=== PATIENT | female | born 1970 | race Caucasian/White ===

== ENCOUNTER 2019-06-13 02:03 | Observation (INO) | payer BC ==
--- NOTE | 2019-06-13 02:54 | ER ---
Nurse's Notes [facility] Name: Mary Leiva Age: 48 yrs Sex: Female : 1970 Arrival Date: 06/13/2019 Time: 02:07 Bed 8 Private MD: Diagnosis: Dysphagia;Esophageal obstruction;Essential (primary) hypertension;Hypokalemia Presentation: 06/13 02:17 Presenting complaint: Patient states: I was eating at 2000 last night and it felt like jb4 something got caught in my throat and now I cannot swallow anything without throwing it back up. Transition of care: patient was not received from another setting of care. Onset of symptoms was June 12, 2019. Risk Assessment: Do you want to hurt yourself or someone else? Patient reports no desire to harm self or others. Initial Sepsis Screen: Does the patient meet any 2 criteria? HR > 90 bpm. Yes Does the patient have a suspected source of infection? No. Patient's initial sepsis screen is negative. Care prior to arrival: None. 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 - Social history:: Smoking status: Patient uses tobacco products, smokes one-half pack cigarettes per day, Patient/guardian denies using alcohol, street drugs. - Ebola Screening: : No symptoms or risks identified at this time. - Family history:: not pertinent. Screenin:20 Abuse screen: Denies threats or abuse. Nutritional screening: No deficits noted. jb4 Tuberculosis screening: No symptoms or risk factors identified. Fall Risk None identified. Assessment: 02:20 General: Appears in no apparent distress. uncomfortable, Behavior is calm, cooperative, jb4 appropriate for age. Pain: Denies pain. Neuro: Level of Consciousness is awake, alert, obeys commands, Oriented to time, situation. Cardiovascular: Patient's skin is warm and dry. Respiratory: Airway is patent Respiratory effort is even, unlabored, Respiratory pattern is regular, symmetrical. GI: No deficits noted. No signs and/or symptoms were reported involving the gastrointestinal system. : No deficits noted. No signs and/or symptoms were reported regarding the genitourinary system. EENT: Throat is clear with gag reflex present, Reports inability to swallow.. Derm: Skin is intact, Skin is pink, warm \T\ dry. Musculoskeletal: Circulation, motion, and sensation intact. Range of motion:. 03:30 Reassessment: Patient appears in no apparent distress at this time. No changes from jb4 previously documented assessment. Patient and/or family updated on plan of care and expected duration. Pain level reassessed. 04:13 Reassessment: Patient appears in no apparent distress at this time. Patient and/or jb4 family updated on plan of care and expected duration. Pain level reassessed. Patient is alert, oriented x 3, equal unlabored respirations, skin warm/dry/pink. Patient states feeling better. 05:59 Reassessment: Pt resting quietly, A\T\O x 4, resp unlabored, IV site patent, intact with bb fluids infusing, report called to Nataly CISNEROS for room 408. Vital Signs: 02:19 BP 168 / 114; Pulse 110; Resp 18; Temp 98.2(O); Pulse Ox 100% on R/A; Weight 55.34 kg jb4 (R); Height 5 ft. 2 in. (157.48 cm); Pain 0/10; 03:19 BP 171 / 119; Pulse 97; Resp 18; Pulse Ox 97% on R/A; jb4 04:00 BP 155 / 109; Pulse 84; Resp 16; Pulse Ox 99% on R/A; jb4 05:00 BP 154 / 93; Pulse 81; Resp 16; Pulse Ox 97% on R/A; jb4 06:00 BP 164 / 104; Pulse 83; Resp 18 S; Temp 97.8(O); Pulse Ox 98% on R/A; jb4 02:19 Body Mass Index 22.31 (55.34 kg, 157.48 cm) jb4 ED Course: 02:07 Patient arrived in ED. cl3 02:10 Marcus Haji, RN is Primary Nurse. jb4 02:18 Triage completed. jb4 02:19 Eduar Vasquez MD is Attending Physician. fausto 02:19 Arm band placed on right wrist. jb4 02:20 Patient has correct armband on for positive identification. Bed in low position. Call jb4 light in reach. Side rails up X 1. Pulse ox on. NIBP on. 02:51 Manuel Culp MD is Hospitalizing Provider. fausto 03:05 Inserted saline lock: 22 gauge in right antecubital area, using aseptic technique. lp1 Blood collected. 03:21 X-ray completed. Portable x-ray completed in exam room. Patient tolerated procedure mh1 well. 03:22 XRAY Chest (1 view) In Process Unspecified. EDMS 06:02 No provider procedures requiring assistance completed. Patient admitted, IV remains in bb place. Administered Medications: Discontinued: NS 0.9% 1000 ml IV at 125 ml/hr continuous 02:49 CANCELLED (Duplicate Order): NS 0.45 % 1000 ml IV at 125 ml/hr continuous fausto 03:10 Drug: Zofran 4 mg Route: IVP; Site: right antecubital; jb4 03:40 Follow up: Response: No adverse reaction; Nausea is decreased jb4 03:14 Drug: ProTONIX 40 mg Route: IVP; Site: right antecubital; jb4 04:20 Follow up: Response: No adverse reaction jb4 03:15 Drug: morphine 2 mg {Note: Rass score 0.} Route: IVP; Site: right antecubital; jb4 03:45 Follow up: Response: No adverse reaction; Pain is decreased; RASS: Alert and Calm (0) jb4 03:16 Drug: NS 0.9% 1000 ml Route: IV; Rate: 125 ml/hr; Site: right antecubital; jb4 04:19 Follow up: Response: No adverse reaction; IV Status: Infusion continued upon admission jb4 04:30 Follow up: Response: No adverse reaction; IV Status: Order to discontinue infusion; IV jb4 Intake: 180ml 03:23 Drug: GI Cocktail without - (Maalox Suspension 30 ml, Lidocaine Liquid 2 % 15 jb4 ml) Route: PO; 04:19 Follow up: Response: No adverse reaction; Marked relief of symptoms jb4 04:31 Drug: NS 0.9% with KCl 20 mEq/L 1000 ml Route: IV; Rate: 125 ml/hr; Site: right jb4 antecubital; Intake: 04:30 IV: 180ml; Total: 180ml. jb4 Outcome: 02:53 Decision to Hospitalize by Provider. fausto 06:02 Admitted to Tele accompanied by tech, via wheelchair, room 408, with chart, Report bb called to Nataly CISNEROS 06:02 Condition: stable 06:02 Instructed on the need for admit. 06:21 Patient left the ED. jb4 Signatures: Dispatcher [employer] EDEduar Hannah MD MD cha Harvey, Martha 1 Susan Arellano, RN RN bb Gianna Sofia RN RN lp1 Marcus Haji RN RN jb4 Dominguez Martinez cl3 Corrections: (The following items were deleted from the chart) 02:28 02:20 EENT: Reports inability to swallow.. jb4 jb4 06:21 06:00 BP 164 / 104; Pulse 83bpm; Resp 98bpm; Spontaneous; Pulse Ox 98% RA; Temp 97.8F jb4 Oral; bb
--- NOTE | 2019-06-13 02:54 | EDPHYS ---
Physician Documentation [facility] Name: Mary Leiva Age: 48 yrs Sex: Female : 1970 Arrival Date: 06/13/2019 Time: 02:07 Bed 8 Private MD: YAZMIN Physician Eduar Vasquez HPI: 06/13 02:45 This 48 yrs old Female presents to ER via Ambulatory with complaints of fausto Difficulty Swallowing. 02:45 The patient presents with sore throat. The patient describes throat pain as burning, fausto constant. Onset: The symptoms/episode began/occurred last night. Severity of symptoms: At their worst the symptoms were moderate, in the emergency department the symptoms have resolved. Modifying factors: The symptoms are alleviated by nothing, the symptoms are aggravated by fluids, foods, swallowing. Associated signs and symptoms: Pertinent positives: chest pain, cough. The patient has experienced similar episodes in the past, a few times. 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 - Social history:: Smoking status: Patient uses tobacco products, smokes one-half pack cigarettes per day, Patient/guardian denies using alcohol, street drugs. - Ebola Screening: : No symptoms or risks identified at this time. - Family history:: not pertinent. ROS: 02:45 Constitutional: Negative for fever, chills, and weight loss, Eyes: Negative for injury, fausto pain, redness, and discharge, ENT: Negative for injury, pain, and discharge, Neck: Negative for injury, pain, and swelling, Cardiovascular: Negative for chest pain, palpitations, and edema, Respiratory: Negative for shortness of breath, cough, wheezing, and pleuritic chest pain, Abdomen/GI: Negative for abdominal pain, nausea, vomiting, diarrhea, and constipation, Back: Negative for injury and pain, : Negative for injury, bleeding, discharge, and swelling, MS/Extremity: Negative for injury and deformity, Skin: Negative for injury, rash, and discoloration, Neuro: Negative for headache, weakness, numbness, tingling, and seizure, Psych: Negative for depression, anxiety, suicide ideation, homicidal ideation, and hallucinations, Allergy/Immunology: Negative for hives, rash, and allergies, Endocrine: Negative for neck swelling, polydipsia, polyuria, polyphagia, and marked weight changes, Hematologic/Lymphatic: Negative for swollen nodes, abnormal bleeding, and unusual bruising. Exam: 02:45 Constitutional: This is a well developed, well nourished patient who is awake, alert, fausto and in no acute distress. Head/Face: Normocephalic, atraumatic. Eyes: Pupils equal round and reactive to light, extra-ocular motions intact. Lids and lashes normal. Conjunctiva and sclera are non-icteric and not injected. Cornea within normal limits. Periorbital areas with no swelling, redness, or edema. ENT: Nares patent. No nasal discharge, no septal abnormalities noted. Tympanic membranes are normal and external auditory canals are clear. Oropharynx with no redness, swelling, or masses, exudates, or evidence of obstruction, uvula midline. Mucous membranes moist. Neck: Trachea midline, no thyromegaly or masses palpated, and no cervical lymphadenopathy. Supple, full range of motion without nuchal rigidity, or vertebral point tenderness. No Meningismus. Chest/axilla: Normal chest wall appearance and motion. Nontender with no deformity. No lesions are appreciated. Cardiovascular: Regular rate and rhythm with a normal S1 and S2. No gallops, murmurs, or rubs. Normal PMI, no JVD. No pulse deficits. Respiratory: Lungs have equal breath sounds bilaterally, clear to auscultation and percussion. No rales, rhonchi or wheezes noted. No increased work of breathing, no retractions or nasal flaring. Abdomen/GI: Soft, non-tender, with normal bowel sounds. No distension or tympany. No guarding or rebound. No evidence of tenderness throughout. Back: No spinal tenderness. No costovertebral tenderness. Full range of motion. Skin: Warm, dry with normal turgor. Normal color with no rashes, no lesions, and no evidence of cellulitis. MS/ Extremity: Pulses equal, no cyanosis. Neurovascular intact. Full, normal range of motion. Neuro: Awake and alert, GCS 15, oriented to person, place, time, and situation. Cranial nerves II-XII grossly intact. Motor strength 5/5 in all extremities. Sensory grossly intact. Cerebellar exam normal. Normal gait. Psych: Awake, alert, with orientation to person, place and time. Behavior, mood, and affect are within normal limits. Vital Signs: 02:19 BP 168 / 114; Pulse 110; Resp 18; Temp 98.2(O); Pulse Ox 100% on R/A; Weight 55.34 kg jb4 (R); Height 5 ft. 2 in. (157.48 cm); Pain 0/10; 03:19 BP 171 / 119; Pulse 97; Resp 18; Pulse Ox 97% on R/A; jb4 04:00 BP 155 / 109; Pulse 84; Resp 16; Pulse Ox 99% on R/A; jb4 05:00 BP 154 / 93; Pulse 81; Resp 16; Pulse Ox 97% on R/A; jb4 06:00 BP 164 / 104; Pulse 83; Resp 18 S; Temp 97.8(O); Pulse Ox 98% on R/A; jb4 02:19 Body Mass Index 22.31 (55.34 kg, 157.48 cm) 4 MDM: 02:19 Patient medically screened. [facility] 02:49 Data reviewed: vital signs, nurses notes, lab test result(s), EKG, radiologic studies, fausto plain films. 06/13 02:45 Order name: Basic Metabolic Panel; Complete Time: 04:20 [facility] 06/13 02:45 Order name: CBC with Diff; Complete Time: 04:20 [facility] 06/13 02:45 Order name: LFT's; Complete Time: 04:20 [facility] 06/13 02:45 Order name: Magnesium; Complete Time: 04:20 [facility] 06/13 02:45 Order name: NT PRO-BNP; Complete Time: 04:20 [facility] 06/13 02:45 Order name: PT-INR; Complete Time: 04:20 [facility] 06/13 02:45 Order name: Troponin (emerg Dept Use Only); Complete Time: 04:20 [facility] 06/13 02:45 Order name: XRAY Chest (1 view) [facility] 06/13 05:31 Order name: CBC with Automated Diff EDMS 06/13 05:31 Order name: CBC with Automated Diff EDMS 06/13 05:31 Order name: Comprehensive Metabolic Panel EDMT 06/13 05:31 Order name: Comprehensive Metabolic Panel EDMT 06/13 02:45 Order name: EKG; Complete Time: 02:46 fausto 06/13 02:45 Order name: Cardiac monitoring; Complete Time: 03:19 fausto 06/13 02:45 Order name: EKG - Nurse/Tech; Complete Time: 03:19 fausto 06/13 02:45 Order name: IV Saline Lock; Complete Time: 03:19 fausto 06/13 02:45 Order name: Labs collected and sent; Complete Time: 03:19 fausto 06/13 02:45 Order name: O2 Per Protocol; Complete Time: 03:19 fausto 06/13 02:45 Order name: O2 Sat Monitoring; Complete Time: 03:19 fausto 06/13 05:30 Order name: CONS Pharmacy Consult EDMT 06/13 05:30 Order name: CONS Physician Consult EDMT 06/13 05:31 Order name: NPO EDMT Administered Medications: Discontinued: NS 0.9% 1000 ml IV at 125 ml/hr continuous 02:49 CANCELLED (Duplicate Order): NS 0.45 % 1000 ml IV at 125 ml/hr continuous [facility] 03:10 Drug: Zofran 4 mg Route: IVP; Site: right antecubital; jb4 03:40 Follow up: Response: No adverse reaction; Nausea is decreased jb4 03:14 Drug: ProTONIX 40 mg Route: IVP; Site: right antecubital; jb4 04:20 Follow up: Response: No adverse reaction jb4 03:15 Drug: morphine 2 mg {Note: Rass score 0.} Route: IVP; Site: right antecubital; jb4 03:45 Follow up: Response: No adverse reaction; Pain is decreased; RASS: Alert and Calm (0) jb4 03:16 Drug: NS 0.9% 1000 ml Route: IV; Rate: 125 ml/hr; Site: right antecubital; jb4 04:19 Follow up: Response: No adverse reaction; IV Status: Infusion continued upon admission jb4 04:30 Follow up: Response: No adverse reaction; IV Status: Order to discontinue infusion; IV jb4 Intake: 180ml 03:23 Drug: GI Cocktail without - (Maalox Suspension 30 ml, Lidocaine Liquid 2 % 15 jb4 ml) Route: PO; 04:19 Follow up: Response: No adverse reaction; Marked relief of symptoms jb4 04:31 Drug: NS 0.9% with KCl 20 mEq/L 1000 ml Route: IV; Rate: 125 ml/hr; Site: right jb4 antecubital; Disposition: 06/13/19 02:53 Hospitalization ordered by Manuel Culp for Observation. Preliminary diagnosis are Dysphagia, Esophageal obstruction, Essential (primary) hypertension, Hypokalemia. - Bed requested for Telemetry/MedSurg (observation). - Status is Observation. jb4 - Condition is Fair. - Problem is new. - Symptoms have improved. UTI on Admission? No Signatures: Dispatcher [employer] EDMS Eduar Vasquez MD MD cha Garcia, Cindy, RN RN Marcus Ariza RN RN jb4 Corrections: (The following items were deleted from the chart) 02:49 02:45 NS 0.45 % 1000 ml IV at 125 ml/hr continuous ordered. fausto lambert 02:54 02:53 Hospitalization Ordered by Manuel Culp MD for Observation. Preliminary fausto diagnosis is Dysphagia; Esophageal obstruction. Bed requested for Telemetry/MedSurg (observation). Status is Observation. Condition is Fair. Problem is new. Symptoms have improved. UTI on Admission? No. fausto 04:21 02:54 06/13/2019 02:53 Hospitalization Ordered by Manuel Culp MD for Observation. fausto Preliminary diagnosis is Dysphagia; Esophageal obstruction; Essential (primary) hypertension. Bed requested for Telemetry/MedSurg (observation). Status is Observation. Condition is Fair. Problem is new. Symptoms have improved. UTI on Admission? No. fausto 05:39 04:21 06/13/2019 02:53 Hospitalization Ordered by Manuel Culp MD for Observation. Preliminary diagnosis is Dysphagia; Esophageal obstruction; Essential (primary) hypertension; Hypokalemia. Bed requested for Telemetry/MedSurg (observation). Status is Observation. Condition is Fair. Problem is new. Symptoms have improved. UTI on Admission? No. fausto 06:21 05:39 06/13/2019 02:53 Hospitalization Ordered by Manuel Culp MD for Observation. deandre Preliminary diagnosis is Dysphagia; Esophageal obstruction; Essential (primary) hypertension; Hypokalemia. Bed requested for Telemetry/MedSurg (observation). Status is Observation. Condition is Fair. Problem is new. Symptoms have improved. UTI on Admission? No.
[2019-06-13] MEDS ORDERED: MORPHINE 2 MG/ML SYR ONE (02:58)
[2019-06-13] MEDS ORDERED: ONDANSETRON 4 MG/2 ML VIAL ONE (02:58)
[2019-06-13] MEDS ORDERED: MAGNE/ALUM HYDROXD 30 ML UCUP ONE (02:58)
[2019-06-13] MEDS ORDERED: LIDOCAINE VISCOUS 2% SOLN 15 ML UDC ONE (02:59)
[2019-06-13] MEDS ORDERED: PANTOPRAZOLE 40 MG INJ ONE (02:59)
[2019-06-13] MEDS ORDERED: NA CHLORIDE 0.9% 1,000 ML ONE (02:59)
[2019-06-13 03:29] LABS: Basophils % 0.3 % (0-1.3); Hematocrit 42.2 % (36.0-45.0); Lymphocytes % 38.2 % (15.3-44.8); RBC Red Blood Cell Count 4.97 M/uL (3.86-4.86)
[2019-06-13 03:31] LABS: Protime INR 0.96
[2019-06-13 03:42] LABS: ALT/SGPT 26 U/L (12-78); AST/SGOT 27 U/L (15-37); Albumin 3.6 g/dL (3.4-5.0); Alkaline Phosphatase 75 U/L (45-117); BUN Blood Urea Nitrogen 19 mg/dL (7-18); Bicarbonate 25 mmol/L (21-32); Bilirubin Direct 0.2 mg/dL (0-0.2); Bilirubin Total 0.8 mg/dL (0.2-1.0); Glucose Level 95 mg/dL (74-106); NT PRO-BNP 220 pg/mL (<125); Potassium 3.3 mmol/L (3.5-5.1); Protein, Total 8.7 g/dL (6.4-8.2); Sodium Level 141 mmol/L (136-145); Troponin (Emerg Dept Use Only) < 0.02 ng/mL (0.0-0.045)
[2019-06-13] MEDS ORDERED: NS KCL 20MEQ 1,000 ML IV ONE (04:27)
[2019-06-13] MEDS ORDERED: ONDANSETRON 4 MG/2 ML VIAL IV PRN (05:27)
[2019-06-13] MEDS ORDERED: MORPHINE 2 MG/ML SYR IV PRN (05:27)
[2019-06-13] MEDS ORDERED: ACETAMINOPHEN 500 MG TAB PO PRN (05:27)
[2019-06-13] MEDS ORDERED: SODIUM CHLORIDE 0.9% 10ML INJ IV PRN (05:29)
[2019-06-13] MEDS ORDERED: PANTOPRAZOLE 40 MG INJ IVP SCH (06:00)
[2019-06-13] MEDS ORDERED: NA CHLORIDE 0.9% 1,000 ML IV SCH (06:00)
[2019-06-13 06:30] VITALS: BMI 21.4
[2019-06-13] MEDS ORDERED: HYDRALAZINE HCL 20 MG/ML VIAL IV PRN (07:14)
--- NOTE | 2019-06-13 07:38 | P.HP ---
Certification for Inpatient Patient admitted to: Observation With expected LOS: <2 Midnights Patient will require the following post-hospital care: None Practitioner: I am a practitioner with admitting privileges, knowledge of patient current condition, hospital course, and medical plan of care. Services: Services provided to patient in accordance with Admission requirements found in Title 42 Section 412.3 of the Code of Federal Regulations Patient History Date of Service: 06/13/19 Reason for admission: Esophageal obstruction History of Present Illness: Patient is a 48-year-old female who was eating at a local restaurant and started choking on state potatoes. After she took a bite of this taken potatoes she felt like it was stuck. She tried to drink something but had nausea and vomiting afterwards. She continued should be tried and get it to wash down but she had no success. Decision was made to come into the emergency room. Patient will get GI consultation for further evaluation. Incidentally patient feels like she had the food go down after she was admitted upstairs and moved from one bed to the other. Will await GI consultation prior to feeding. Allergies aloe vera Allergy (Unverified 10/26/16 23:12) Unknown Sulfa (Sulfonamide Antibiotics) Allergy (Verified 06/11/16 04:41) Unknown alovera Allergy (Uncoded 01/25/15 23:30) Unknown Home Medications: NK [No Home Meds] 06/13/19 - Past Medical/Surgical History Diabetic: No Past Medical History: Patient denies medical history -: Bilateral tubal ligation - Family History Father Family History: Reviewed- Non-Contributory - Social History Alcohol use: No CD- Drugs: No Caffeine use: Yes Review of Systems 10-point ROS is otherwise unremarkable Physical Examination - Vital Signs Temperature: 97.6 F Blood Pressure: 169/108 Pulse: 88 Respirations: 16 Pulse Ox (%): 99 - Physical Exam General: Alert, In no apparent distress, Oriented x3 HEENT: Atraumatic, PERRLA, Mucous membr. moist/pink, EOMI, Sclerae nonicteric Neck: Supple, 2+ carotid pulse no bruit, No LAD, Without JVD or thyroid abnormality Respiratory: Clear to auscultation bilaterally, Normal air movement Cardiovascular: Regular rate/rhythm, Normal S1 S2, No murmurs Gastrointestinal: Normal bowel sounds, Soft and benign, Non-distended, Tenderness (Epigastric tenderness) Musculoskeletal: No clubbing, No swelling, No tenderness Integumentary: No rashes Neurological: Normal gait, Normal speech, Normal strength at 5/5 x4 extr, Normal tone, Sensation intact, Cranial nerves 3-12 intact, Normal affect Lymphatics: No axilla or inguinal lymphadenopathy - Studies Laboratory Data (last 24 hrs) 06/13/19 03:05: PT 11.4, INR 0.96 06/13/19 03:05: WBC 5.2, Hgb 14.8, Hct 42.2, Plt Count 176 06/13/19 03:05: Sodium 141, Potassium 3.3 L, BUN 19 H, Creatinine 0.74, Glucose 95, Magnesium 2.0, Total Bilirubin 0.8, AST 27, ALT 26, Alkaline Phosphatase 75 Assessment & Plan - Problems (Diagnosis) (1) Esophageal stenosis Current Visit: Yes Status: Acute (2) Dysphagia Current Visit: Yes Status: Acute - Plan Plan: 1. GI consultation 2. NPO after midnight 3. IV hydration 4. Monitor labs closely 5. GI and DVT prophylaxis Discharge Plan: Home Plan to discharge in: 24 Hours - Advance Directives Does patient have a Living Will: No Does patient have a Durable POA for Healthcare: No - Code Status/Comfort Care Code Status Assessed: Yes Code Status: Full Code Critical Care: No Time Spent Managing PTS Care (In Minutes): 40
[2019-06-13] MEDS ORDERED: METOPROLOL TARTRATE 5 MG/5 ML INJ IV PRN (07:57)
[2019-06-13] MEDS ORDERED: IPRATROPIUM BROM 0.5MG/2.5ML NEB PRN (08:12)
[2019-06-13] MEDS ORDERED: ALBUTEROL 2.5 MG/3 ML NEB SOL NEB PRN (08:12)
--- NOTE | 2019-06-13 08:42 | EKG ---
Test Date: 2019-06-13 Test Time: 02:59:21 Machine Tool Operator: CHANTELL MEASUREMENT RESULTS: Intervals: Rate: 87 WY: 138 QRSD: 86 QT: 364 QTc: 438 [place]: P: 75 WY: 138 QRS: 54 T: 52 INTERPRETIVE STATEMENTS: Normal sinus rhythm Normal ECG Compared to ECG 06/11/2016 01:30:58 No significant changes Electronically Signed On 06-13-19 08:42:06 CDT by Mario Grace
[2019-06-13] MEDS ORDERED: NICOTINE 21 MG/PAT TD SCH (09:00)
[2019-06-13 09:15] LABS: Thyroid Stimulating Hormone 0.498 uIU/mL (0.360-3.740)
--- NOTE | 2019-06-13 11:34 | P.PN ---
Subjective Date of Service: 06/13/19 Primary Care Provider: Dr. Valentine([place], [place]) Chief Complaint: Esophageal obstruction Subjective: Other (Patient actually feels slightly improved. Patient reports recent weight loss. Patient with history of GERD with hiatal hernia and esophageal stricture. Patient is a smoker. Patient also with history of right upper lung lobe nodule and thyromegaly. Patient is not followed up with pulmonology.) Physical Examination - Vital Signs Temperature: 97.9 F Blood Pressure: 154/81 Pulse: 70 Respirations: 18 Pulse Ox (%): 96 - Physical Exam General: Alert, In no apparent distress, Oriented x3, Cooperative HEENT: Atraumatic Neck: Supple Respiratory: Clear to auscultation bilaterally, Normal air movement Cardiovascular: Normal pulses, Regular rate/rhythm Gastrointestinal: Normal bowel sounds, Soft and benign, Non-distended, No tenderness, No masses, No rebound, No guarding Musculoskeletal: No erythema, No tenderness, No warmth, Kyphosis, Scoliosis Integumentary: No erythema, No warmth, No cyanosis Neurological: Normal speech, Normal strength at 5/5 x4 extr, Normal tone, Normal affect - Studies Laboratory Data (last 24 hrs) 06/13/19 03:05: PT 11.4, INR 0.96 06/13/19 03:05: WBC 5.2, Hgb 14.8, Hct 42.2, Plt Count 176 06/13/19 03:05: Sodium 141, Potassium 3.3 L, BUN 19 H, Creatinine 0.74, Glucose 95, Magnesium 2.0, Total Bilirubin 0.8, AST 27, ALT 26, Alkaline Phosphatase 75 Medications List Reviewed: Yes Assessment & Plan Discharge Plan: Home Plan to discharge in: 24 Hours Physician Review Additional Text: Impression: Dysphagia likely with retained food with history of esophageal stricture/GERD/ hiatal hernia History of right upper lobe lung nodule History of thyromegaly Elevated blood pressure now likely with hypertension Scoliosis Tobacco abuse Plan: Dysphagia likely with retained food with history of esophageal stricture/GERD/ hiatal hernia: Patient actually feels better this morning. She feels that the food product has drop down. Case discussed with GI. GI plans for EGD to further address. Previous information reviewed. Patient had EGD in 2016. Esophageal stricture, GERD and had are hernia noted at that time. Patient with history of recent weight loss. Patient with tobacco abuse as well. Will provide nicotine patch. Await findings from EGD. Likely advance diet after EGD. If clinically stable will plan for discharge later today. Will discuss further with GI. History of right upper lobe lung nodule: Will obtain CT scan to further evaluate. Recommend tobacco cessation. Patient will need follow up with pulmonology as an outpatient. History of thyromegaly: Will recommend dedicated thyroid ultrasound as an outpatient. Tsh and free T4 within normal range. Elevated blood pressure now likely with hypertension: Will start IV medication. Patient reports history of headaches. Likely from hypertension. Patient will require medication at discharge. Scoliosis: Patient with some scoliosis. Will recommend dedicated x-rays of the back as an outpatient. Tobacco abuse: Tobacco cessation addressed in detail. Will provide nicotine patch. Time Spent Managing Pts Care (In Minutes): 55
--- NOTE | 2019-06-13 11:38 | RAD REPORT ---
EXAM DESCRIPTION: Leida Single View06/13/2019 3:22 am CLINICAL HISTORY: Chest pain COMPARISON: 2016 FINDINGS: The lungs are hyperaerated The lungs appear clear of acute infiltrate. The heart is normal size IMPRESSION: No acute abnormalities displayed
--- NOTE | 2019-06-13 12:43 | RAD REPORT ---
EXAM DESCRIPTION: CT - Thorax Wo Con - 06/13/2019 8:55 am CLINICAL HISTORY: sob COMPARISON: 2016 TECHNIQUE: Computed axial tomography of the chest was obtained. Contrast was not requested. All CT scans are performed using dose optimization technique as appropriate and may include automated exposure control or mA/KV adjustment according to patient size. FINDINGS: The evaluation of mediastinum, roshan and vessels is limited secondary to lack of IV contras t administration. Paraseptal emphysema. Several tiny subpleural nodules likely benign. No mediastinal or hilar lymphadenopathy is seen. A pleural effusion is not present. No pericardial effusion Ascending aorta has an AP diameter of 3.5 centimeters . Moderate hiatal hernia IMPRESSION: COPD
[2019-06-13] MEDS ORDERED: LIDOCAINE 1% MPF 5 ML VIAL ONE (18:37)
[2019-06-13] MEDS ORDERED: PROPOFOL 200 MG/20 ML VIAL IV ONE (18:38)
[2019-06-13] MEDS ORDERED: LABETALOL 20 MG/4ML SYRINGE IV ONE (19:12)
--- NOTE | 2019-06-13 19:19 | ENDO RPT ---
[address], [address] EGD PROCEDURE REPORT EXAM DATE: 06/13/2019 PATIENT NAME: Mary Leiva MR#: [id number] BIRTHDATE: 1970 ATTENDING: Josh Clark Dr STATUS: inpatient REMOTE MEDICAL CODER: Venessa Moore and Maryan Paige RN INDICATIONS: The patient is a 48 yr old Female here for an EGD due to dysphagia and GERD PROCEDURE PERFORMED: EGD with biopsy MEDICATIONS: Per Anesthesia. TOPICAL ANESTHETIC: none CONSENT: The patient understands the risks and benefits of the procedure and understands that these risks include, but are not limited to: sedation, allergic reaction, infection, perforation and/or bleeding. Alternative means of evaluation and treatment include, among others: physical exam, x-rays, and/or surgical intervention. The patient elects to proceed with this endoscopic procedure. DESCRIPTION OF PROCEDURE: During intra-op preparation period all mechanical medical equipment was checked for proper function. Hand hygiene and appropriate measures for infection prevention was taken. Procedure, possible complications, and alternatives including but not limited to the possibility of bleeding, perforation, tear, infection, sepsis, need for surgery, need for blood transfusion, and anesthesia related complications were explained to the patient. After the risks, benefits and alternatives of the procedure were thoroughly explained, Informed consent was verified, confirmed and timeout was successfully executed by the treatment team. The patient was placed in the left lateral position. The patient was anesthetized with topical anesthesia. Through the anesthetized oropharyngeal area, the scope was passed without any difficulty. The [id number] ([id number]) endoscope was introduced through the mouth and advanced to the stomach body. Retroflexion was not performed. The gastroscope was then slowly withdrawn and removed. Numerous white-yellow plaques / esophagitis was found in the total esophagus. A stricture was found in the mid esophagus. A large hiatal hernia was found ADVERSE EVENTS: There were no complications. IMPRESSIONS: 1. Numerous white-yellow plaques / esophagitis in the total esophagitis 2. Moderate stricture in the mid esophagus, just able to pass with twist and gentle push on endoscope 3. Large hiatal hernia (no further intubation attempted due to tension on esophageal mucosa in the mid esophagus where the moderate stricture was) RECOMMENDATIONS: 1. await biopsy results 2. acid suppression therapy REPEAT EXAM: Return in 2 month(s) for EGD. Josh Clark Dr eSigned: Josh Clark Dr 06/13/2019 7:19 PM cc: Bhupinder [place] CPT CODES: ICD9 CODES: PATIENT NAME: Mary Leiva MR#: [id number]
[2019-06-13 19:39] VITALS: O2SAT 99
[2019-06-13] MEDS ORDERED: ARFORMOTEROL TARTRATE 15 MCG/2 ML VIAL.NEB NEB SCH (20:00)
[2019-06-13 20:13] VITALS: BP 127/91; TEMP 98.7
[2019-06-13] MEDS ORDERED: INFLUENZA VACCINE (for 3y+) 0.5 ML DOSE IMVAC ONE (20:46)
[2019-06-13] MEDS ORDERED: PNEUMOCOCCAL VACCINE 0.5 ML IMVAC ONE (20:46)
[2019-06-13] MEDS ORDERED: NYSTATIN 500,000 UNIT/5 ML UDC PO SCH (21:00)
--- OUTSIDE RECORDS SUMMARY | 2019-06-21 19:50 | XMS REPORT ---
:1970 [facility] Address [address] [place] [address] Care Team Providers Name Role Phone Unavailable Unavailable Unavailable Problems This patient has no known problems. Allergies, Adverse Reactions, Alerts This patient has no known allergies or adverse reactions. Medications This patient has no known medications.
== END 2019-06-13 21:20 | disposition home or self-care (01) ==
LOC: ER 02:03 → ERHOLD 05:55 → 4TH 06:02
PROVIDERS: ADMIT Hospitalist; ATTEND Family Medicine
PROC: 0DB58ZZ Excision of Esophagus, Via Natural or Artificial Opening Endoscopic (ICD-10-PCS; principal; 2019-06-13 15:30)
DX: K22.2 Esophageal obstruction (principal); B37.81 Candidal esophagitis; R13.10 Dysphagia, unspecified; K21.9 Gastro-esophageal reflux disease without esophagitis; K44.9 Diaphragmatic hernia without obstruction or gangrene; M41.9 Scoliosis, unspecified; F17.200 Nicotine dependence, unspecified, uncomplicated
CPT/HCPCS: 96361; 93005; 85025; 80048; 36415; 83735; 88312; 85610; 80076; 88305; 84443; 84484; 84439; 83880; 71250; 71045; 90471 ×2; 94640; 96375; 96374; 99285; 43239; J2704; Q2035; C9113 ×2; J2270; J7605; G0378 ×3; J7030 ×2; J2405; 90670

== ENCOUNTER 2019-12-31 02:45 | Emergency (ER) | payer BC ==
--- OUTSIDE RECORDS SUMMARY | 2019-12-31 02:47 | XMS REPORT ---
:1970 Author Organization [facility] t Address [address] [place] [address] Care Team Providers Name Role Phone Unavailable Unavailable Unavailable Problems This patient has no known problems. Allergies, Adverse Reactions, Alerts This patient has no known allergies or adverse reactions. Medications This patient has no known medications. Procedures This patient has no known procedures. Results This patient has no known results.
[2019-12-31 03:33] LABS: Basophils % 0.3 % (0-1.3); Hematocrit 42.5 % (36.0-45.0); Lymphocytes % 35.8 % (15.3-44.8); MPV 8.1 fL (7.6-11.3); RBC Red Blood Cell Count 5.03 M/uL (3.86-4.86)
[2019-12-31 03:43] LABS: Albumin 3.6 g/dL (3.4-5.0); Bilirubin Total 0.9 mg/dL (0.2-1.0); Potassium 3.2 mmol/L (3.5-5.1); Protein, Total 9.2 g/dL (6.4-8.2)
--- NOTE | 2019-12-31 05:36 | ER ---
Nurse's Notes [facility] Name: Mary Leiva Age: 49 yrs Sex: Female : 1970 Arrival Date: 12/31/2019 Time: 02:48 Bed 2 Private MD: Diagnosis: Dysphagia Presentation: 12/30 02:52 Chief complaint: Patient states: it feels like there is something lodged in my throat, sg not able to swallow. Coronavirus screen: Proceed with normal triage. Ebola Screen: Patient negative for fever greater than or equal to 101.5 degrees Fahrenheit, and additional compatible Ebola Virus Disease symptoms Patient denies exposure to infectious person. Patient denies travel to an Ebola-affected area in the 21 days before illness onset. No symptoms or risks identified at this time. Initial Sepsis Screen: Does the patient meet any 2 criteria? No. Patient's initial sepsis screen is negative. Does the patient have a suspected source of infection? No. Patient's initial sepsis screen is negative. Risk Assessment: Do you want to hurt yourself or someone else? Patient reports no desire to harm self or others. Onset of symptoms was December 30, 2019 at 14:00. Care prior to arrival: None. 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 - Social history:: Smoking status: Patient reports the use of cigarette tobacco products, denies chronic smoking, but will smoke occasionally. Screenin:12 Abuse screen: Denies threats or abuse. Nutritional screening: No deficits noted. jd3 Tuberculosis screening: No symptoms or risk factors identified. Fall Risk Ambulatory Aid- None/Bed Rest/Nurse Assist (0 pts). Gait- Normal/Bed Rest/Wheelchair (0 pts) Mental Status- Oriented to own ability (0 pts). Total Mrogan Fall Scale indicates No Risk (0-24 pts). Assessment: 03:11 General: Appears in no apparent distress. uncomfortable, Behavior is calm, cooperative, jd3 appropriate for age. Pain: Complains of pain in throat Quality of pain is described as aching, pressure. Neuro: Level of Consciousness is awake, alert, obeys commands, Oriented to person, place, time, situation. Cardiovascular: Denies chest pain, Capillary refill < 3 seconds Patient's skin is warm and dry. Respiratory: Airway is patent Respiratory effort is even, unlabored, Respiratory pattern is regular, symmetrical, Denies cough, shortness of breath. GI: Abdomen is round non-distended, Reports nausea, vomiting, Patient currently denies abdominal pain, diarrhea. : No signs and/or symptoms were reported regarding the genitourinary system. EENT: Throat is clear Reports difficulty swallowing. Derm: Skin is intact, Skin is dry, Skin is normal, Skin temperature is warm. Musculoskeletal: Circulation, motion, and sensation intact. Range of motion: intact in all extremities. 04:40 Reassessment: Patient and/or family updated on plan of care and expected duration. Pain ea level reassessed. Patient is alert, oriented x 3, equal unlabored respirations, skin warm/dry/pink. 05:50 Reassessment: Patient and/or family updated on plan of care and expected duration. Pain ea level reassessed. Patient is alert, oriented x 3, equal unlabored respirations, skin warm/dry/pink. Discharge instruction given to patient, verbalized the understanding of instruction. Pt left ED ambulatory tolerating well. Vital Signs: 03:09 Pulse 100; Resp 17 S; Temp 98.7(O); Pulse Ox 99% on R/A; Weight 54.43 kg (R); jd3 04:40 BP 168 / 87; Pulse 99; Resp 18; Pulse Ox 98% ; ea 05:50 BP 170 / 98; Pulse 99; Resp 18; Pulse Ox 98% ; ea ED Course: 02:48 Patient arrived in ED. ds1 02:52 Triage completed. sg 02:52 Arm band placed on. sg 03:02 Steve Lopez, BLAYNE is Primary Nurse. jd3 03:04 Pedro Donaldson MD is Attending Physician. tw4 03:12 Patient has correct armband on for positive identification. Bed in low position. Call jd3 light in reach. Side rails up X 1. Pulse ox on. NIBP on. 03:14 Inserted saline lock: 20 gauge in right antecubital area, using aseptic technique. ds4 Blood collected. 03:18 CBC with Diff Sent. ds4 03:18 CMP Sent. ds4 04:36 CT Soft Tissue Neck W/contr In Process Unspecified. EDMS 05:49 No provider procedures requiring assistance completed. IV discontinued, intact, ea bleeding controlled, No redness/swelling at site. Pressure dressing applied. Administered Medications: 05:44 Drug: GI Cocktail without - (Maalox Suspension 30 ml, Lidocaine Liquid 2 % 15 jd3 ml) Route: PO; 05:52 Follow up: Response: No adverse reaction ea Outcome: 05:36 Discharge ordered by . tw4 05:49 Discharged to home ambulatory. ea 05:49 Condition: stable 05:49 Discharge instructions given to patient, Instructed on discharge instructions, follow up and referral plans. Demonstrated understanding of instructions, follow-up care. 05:51 Patient left the ED. ea Signatures: Dispatcher [employer] EDMS Onofre Marshall RN RN sg Sanford, Demi ds1 Bandar Delgado ds4 Aissatou Choi RN RN ea Davies, Jonathon, RN RN jd3 Wadley, Terrence, MD MD tw4 Corrections: (The following items were deleted from the chart) 04:24 02:52 Onset of symptoms was December 31, 2019 [facility]
--- NOTE | 2019-12-31 05:36 | EDPHYS ---
Physician Documentation [facility] Name: Mary Leiva Age: 49 yrs Sex: Female : 1970 Arrival Date: 12/31/2019 Time: 02:48 Bed 2 Private MD: ED Physician Pedro Donaldson HPI: 12/30 04:21 This 49 yrs old Female presents to ER via Ambulatory with complaints of tw4 Unable to Swallow-Something Stuck in Throat. 04:21 The patient presents with dysphagia, of solids, of liquids. The patient describes tw4 throat pain as scratchy. Onset: The symptoms/episode began/occurred yesterday, at 14:00. Severity of symptoms: At their worst the symptoms were mild. Modifying factors: The symptoms are alleviated by nothing, the symptoms are aggravated by nothing. The patient has not experienced similar symptoms in the past. 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 - Social history:: Smoking status: Patient reports the use of cigarette tobacco products, denies chronic smoking, but will smoke occasionally. ROS: 04:21 Constitutional: Negative for fever, chills, and weight loss, Eyes: Negative for injury, tw4 pain, redness, and discharge. 04:21 Cardiovascular: Negative for chest pain, palpitations, and edema, Respiratory: Negative for shortness of breath, cough, wheezing, and pleuritic chest pain, Abdomen/GI: Negative for abdominal pain, nausea, vomiting, diarrhea, and constipation, Back: Negative for injury and pain, MS/Extremity: Negative for injury and deformity, Skin: Negative for injury, rash, and discoloration. 04:21 ENT: Positive for difficulty swallowing, Negative for sore throat, dental pain, difficulty handling secretions, hoarseness. Exam: 04:21 Constitutional: This is a well developed, well nourished patient who is awake, alert, tw4 and in no acute distress. Head/Face: Normocephalic, atraumatic. Chest/axilla: Normal chest wall appearance and motion. Nontender with no deformity. No lesions are appreciated. Cardiovascular: Regular rate and rhythm with a normal S1 and S2. No gallops, murmurs, or rubs. Normal PMI, no JVD. No pulse deficits. Respiratory: Lungs have equal breath sounds bilaterally, clear to auscultation and percussion. No rales, rhonchi or wheezes noted. No increased work of breathing, no retractions or nasal flaring. Abdomen/GI: Soft, non-tender, with normal bowel sounds. No distension or tympany. No guarding or rebound. No evidence of tenderness throughout. Back: No spinal tenderness. No costovertebral tenderness. Full range of motion. MS/ Extremity: Pulses equal, no cyanosis. Neurovascular intact. Full, normal range of motion. Neuro: Awake and alert, GCS 15, oriented to person, place, time, and situation. Cranial nerves II-XII grossly intact. Motor strength 5/5 in all extremities. Sensory grossly intact. Cerebellar exam normal. Normal gait. Vital Signs: 03:09 Pulse 100; Resp 17 S; Temp 98.7(O); Pulse Ox 99% on R/A; Weight 54.43 kg (R); jd3 04:40 BP 168 / 87; Pulse 99; Resp 18; Pulse Ox 98% ; ea 05:50 BP 170 / 98; Pulse 99; Resp 18; Pulse Ox 98% ; ea MDM: 04:07 Patient medically screened. tw12/30 03:05 Order name: CBC with Diff; Complete Time: 04:07 12/30 04:07 Interpretation: Normal except: RBC 5.03; PLT 148. 12/30 03:05 Order name: CMP; Complete Time: 04:07 12/30 04:08 Interpretation: Normal except: K 3.2; CL 110; GFR 70. 12/30 03:05 Order name: CT Soft Tissue Neck W/contr Administered Medications: 05:44 Drug: GI Cocktail without - (Maalox Suspension 30 ml, Lidocaine Liquid 2 % 15 jd3 ml) Route: PO; 05:52 Follow up: Response: No adverse reaction ea Disposition: 12/31/19 05:36 Discharged to Home. Impression: Dysphagia. - Condition is Stable. - Discharge Instructions: Dysphagia, Dysphagia Diet Level 2, Mechanically Altered, Dysphagia Diet Level 1, Pureed. - Medication Reconciliation Form, Thank You Letter, Antibiotic Education, Prescription Opioid Use form. - Follow up: Private Physician; When: Upon discharge from the Emergency Department; Reason: Recheck today's complaints, Continuance of care, Re-evaluation by your physician. - Problem is new. - Symptoms have improved. Signatures: Dispatcher [employer] EDMS Onofre Marshall RN RN sg Antunez, Elena, RN RN ea Davies, Jonathon, RN RN jd3 Wadley, Terrence, MD MD tw4 Corrections: (The following items were deleted from the chart) 05:51 05:36 12/31/2019 05:36 Discharged to Home. Impression: Dysphagia. Condition is Stable. ea Forms are Medication Reconciliation Form, Thank You Letter, Antibiotic Education, Prescription Opioid Use. Follow up: Private Physician; When: Upon discharge from the Emergency Department; Reason: Recheck today's complaints, Continuance of care, Re-evaluation by your physician. Problem is new. Symptoms have improved. tw4
[2019-12-31] MEDS ORDERED: LIDOCAINE VISCOUS 2% SOLN 15 ML UDC ONE (05:46)
[2019-12-31] MEDS ORDERED: MAGNE/ALUM HYDROXD 30 ML UCUP ONE (05:46)
[2019-12-31 06:13] VITALS: TEMP 98.7
[2019-12-31 06:15] VITALS: O2SAT 98
[2019-12-31 06:16] VITALS: BP 170/98
--- NOTE | 2019-12-31 09:31 | RAD REPORT ---
EXAM DESCRIPTION: CT - Soft Tissue Neck W/Contr - 12/31/2019 6:11 am CLINICAL HISTORY: The patient is 49 years old and is Female; foreign BODY TECHNIQUE: Axial computed tomography images of the neck with intravenous contrast. Sagittal and co tacos reformatted images were created and reviewed. This CT exam was performed using one or more of the following dose reduction techniques: automated exposure control, adjustment of the mA and/or k V according to patient size, and/or use of iterative reconstruction technique. COMPARISON: No relevant prior studies available. FINDINGS: Oropharynx: Mild bilateral tonsillar and adenoid enlargement without abscess. Hypopharynx: Unremarkable. Larynx: Unremarkable. Normal epiglottis. Trachea: Unremarkable. Retropharyngeal space: Unremarkable. Submandibular/parotid glands: Unremarkable. Glands are normal in size. Thyroid: Left thyroid nodules, largest measures 7 mm. No follow-up required. Bones/joints: No acute fracture. Soft tissues: No radiopaque foreign object visualized. Vasculature: No acute findings. Lymph nodes: Mildly enlarged bilateral jugular chain lymph nodes. Sinuses: Mild bilateral ethmoid sinus mucosal thickening. Mastoid air cells: No significant mastoid or middle ear fluid. Esophagus: Small amount of solid material in the proximal thoracic esophagus, which may be recen tly ingested food. No proximal esophageal distention or wall thickening. Lung apices: Unremarkable as visualized. Pleural space: Scattered apical bullous changes. No pneumothorax. IMPRESSION: 1. Mild bilateral tonsillar and adenoid enlargement, without abscess. 2. No radiopaque foreign object visualized. 3. Subcentimeter incidental thyroid nodule. No follow-up imaging is recommended. Reference: J Am Alex Radiol. 2015 Sep;12(2): 143-50 Electronically signed by: Sarah Russell MD 12/31/2019 5:20 AM CDT Due to temporary technical issues with the PACS/Fluency reporting system, reports are being signed by the in house radiologist as a courtesy to ensure prompt reporting. The interpreting radiologist is f ully responsible for the content of the report.
== END 2019-12-31 05:51 | disposition home or self-care (01) ==
LOC: ER 02:45
DX: R13.10 Dysphagia, unspecified (principal); Z88.2 Allergy status to sulfonamides; F17.210 Nicotine dependence, cigarettes, uncomplicated
CPT/HCPCS: 85025; 36415; 80053; 70491; 99284; Q9967

== ENCOUNTER 2020-06-03 19:25 | Emergency (ER) | payer BC ==
--- OUTSIDE RECORDS SUMMARY | 2020-06-03 19:27 | XMS REPORT | Continuity of Care Document ---
:1970 Author Organization [facility] t Address [address] [place] [address] Care Team Providers Name Role Phone Unavailable Unavailable Unavailable Problems This patient has no known problems. Allergies, Adverse Reactions, Alerts This patient has no known allergies or adverse reactions. Medications This patient has no known medications. Procedures This patient has no known procedures. Results This patient has no known results.
[2020-06-03] MEDS ORDERED: ONDANSETRON 4 MG/2 ML VIAL ONE ×2 (20:07→20:49)
[2020-06-03] MEDS ORDERED: GLUCAGON 1 MG/VIAL ONE (20:07)
[2020-06-03] MEDS ORDERED: NA CHLORIDE 0.9% 1,000 ML ONE (20:07)
[2020-06-03 20:24] LABS: Potassium 3.3 mmol/L (3.5-5.1)
[2020-06-03] MEDS ORDERED: HYDRALAZINE HCL 20 MG/ML VIAL ONE ×2 (20:24→21:40)
[2020-06-03 20:27] LABS: Absolute Lymphocytes (CBC) 2.1 K/uL (0.7-4.9); Basophils % 0.5 % (0-1.3); Hematocrit 35.3 % (36.0-45.0); Lymphocytes % 45.1 % (15.3-44.8); MPV 8.3 fL (7.6-11.3); RBC Red Blood Cell Count 4.19 M/uL (3.86-4.86)
[2020-06-03] MEDS ORDERED: DIPHENHYDRAMINE 50 MG/ML VIAL ONE ×2 (20:41→21:22)
[2020-06-03] MEDS ORDERED: FAMOTIDINE 20 MG/2 ML VIAL IV ONE (20:41)
[2020-06-03] MEDS ORDERED: METHYLPREDNISOLONE 125 MG INJ ONE (20:41)
[2020-06-03 20:56] LABS: Blood Morphology Comment NOT SEEN (NOT SEEN); Platelet Estimate ADEQ
--- NOTE | 2020-06-03 20:59 | EDPHYS ---
Physician Documentation [facility] Name: Mary Leiva Age: 49 yrs Sex: Female : 1970 Arrival Date: 06/03/2020 Time: 19:27 Bed 19 Private MD: ED Physician Eduar Vasquez HPI: 06/03 19:49 This 49 yrs old Female presents to ER via Ambulatory with complaints of cp TROUBLE SWALLOWING. 19:49 The patient or guardian reports the patient has a suspected foreign body, of the cp throat. The reported likely foreign body is piece of meat. 19:50 Onset: The symptoms/episode began/occurred 20 minute(s) ago. Current symptoms: foreign cp body sensation, nausea, vomiting. Treatment Prior to Arrival: the patient induced vomiting. The patient has experienced similar episodes in the past, a few times. 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 - Social history:: Smoking status: Patient reports the use of cigarette tobacco products, smokes one-half pack cigarettes per day. ROS: 19:50 ENT: Positive for difficulty swallowing, foreign body sensation. cp 19:50 Cardiovascular: Negative for chest pain. 19:50 Neuro: Negative for headache, weakness. 19:50 All other systems are negative. Exam: 19:51 Head/Face: Normocephalic, atraumatic. cp 19:51 Constitutional: The patient appears in no acute distress, alert, awake, non-toxic, well developed, well nourished, uncomfortable. 19:51 Eyes: Periorbital structures: appear normal, Conjunctiva: normal, no exudate, no cp injection, Sclera: no appreciated abnormality, Lids and lashes: appear normal, bilaterally. 19:51 ENT: External ear(s): are unremarkable, Nose: is normal, Mouth: Lips: moist, Oral mucosa: moist, Posterior pharynx: Airway: no evidence of obstruction, patent. 19:51 Neck: ROM/movement: is normal, is supple, without pain, no range of motions limitations. 19:51 Chest/axilla: Inspection: normal, Palpation: is normal, no crepitus, no tenderness. 19:51 Cardiovascular: Rate: normal, Rhythm: regular, Edema: is not appreciated, JVD: is not appreciated. 19:51 Respiratory: the patient does not display signs of respiratory distress, Respirations: normal, no use of accessory muscles, no retractions, labored breathing, is not present, Breath sounds: are clear throughout, no decreased breath sounds. Vital Signs: 19:31 BP 209 / 133; Pulse 98; Resp 18; Temp 99.1; Pulse Ox 100% on R/A; Weight 54.43 kg (R); aj1 Height 5 ft. 2 in. (157.48 cm) (R); Pain 0/10; 20:15 BP 175 / 131; Pulse 91; Resp 20; Pulse Ox 100% ; wh 21:00 BP 195 / 114; Pulse 92; Resp 18; Pulse Ox 99% on R/A; wh 22:00 BP 164 / 88; Pulse 100; Resp 18; Pulse Ox 100% on R/A; wh 19:31 Body Mass Index 21.95 (54.43 kg, 157.48 cm) aj1 MDM: 19:43 Patient medically screened. 20:51 Physician consultation: was contacted at 20:52, regarding regarding transfer, to [facility]. DR Cornejo, requests ED to ED transfer. 06/03 19:49 Order name: CBC with Diff; Complete Time: 21:05 cp 06/03 21:05 Interpretation: Normal except: HCT 35.3; PLT 131; LYM% 45.1. cp 06/03 19:49 Order name: BMP; Complete Time: 21:05 cp 06/03 21:06 Interpretation: Normal except: K 3.3; CL 110; BUN 19; GFR 62; CA 8.3. cp 06/03 20:37 Order name: Manual Differential; Complete Time: 21:05 EDMD 06/03 19:49 Order name: IV; Complete Time: 20:00 cp Administered Medications: 20:00 Drug: NS 0.9% 1000 ml Route: IV; Rate: 1 bolus; Site: right forearm; 22:14 Follow up: Response: No adverse reaction; IV Status: Completed infusion 20:02 Drug: GlucaGen 1 mg Route: IVP; Site: right forearm; 20:36 Follow up: Response: No adverse reaction 20:04 Drug: Zofran (Ondansetron) 4 mg Route: IVP; Site: right forearm; 20:36 Follow up: Response: No adverse reaction 20:16 Drug: hydrALAZINE 10 mg Route: IV; Rate: calculated rate; Site: right forearm; 20:36 Follow up: Response: No adverse reaction; Blood pressure is lowered; IV Status: Completed infusion 20:30 Drug: Benadryl 25 mg Route: IVP; Site: right forearm; 21:03 Follow up: Response: No adverse reaction 20:32 Drug: Pepcid 20 mg Route: IVP; Site: right forearm; 21:04 Follow up: Response: No adverse reaction 20:34 Drug: SOLU-Medrol 125 mg Route: IVP; Site: right forearm; 21:04 Follow up: Response: No adverse reaction 20:41 Drug: Zofran (Ondansetron) 4 mg Route: IVP; Site: right forearm; wh 21:04 Follow up: Response: No adverse reaction 21:11 Drug: Benadryl 25 mg Route: IVP; Site: right forearm; 21:21 Follow up: Response: No adverse reaction 21:31 Drug: Potassium Effervescent Tablet 25 mEq Route: PO; 21:52 Follow up: Response: No adverse reaction 21:31 Drug: hydrALAZINE 10 mg Route: IV; Rate: calculated rate; Site: right forearm; 21:52 Follow up: Response: No adverse reaction; Blood pressure is lowered; IV Status: Completed infusion 22:00 Drug: Lisinopril 20 mg Route: PO; 22:11 Follow up: Response: No adverse reaction Disposition: 06/03/20 21:47 Discharged to Home. Impression: Foreign body in esophagus, Hypertensive heart disease. - Condition is Stable. - Discharge Instructions: Hypertension, Swallowed Foreign Body, Adult, How to Take Your Blood Pressure, [id number], Managing Your Hypertension. - Prescriptions for Lisinopril 20 mg Oral Tablet - take 1 tablet by ORAL route once daily; 20 tablet. Prednisone 20 mg Oral Tablet - take 2 tablet by ORAL route once daily for 5 days; 10 tablet. Pepcid 20 mg Oral Tablet - take 1 tablet by ORAL route every 12 hours for 5 days; 10 tablet. - Medication Reconciliation Form, Thank You Letter, Antibiotic Education, Prescription Opioid Use form. - Follow up: Private Physician; When: 2 - 3 days; Reason: elevated blood pressure. - Problem is new. - Symptoms have improved. Addendum: 21:45 Addendum: VSS. Patient reports esophageal foreign body sensation resolved and sensation c p of throat closing resolved. No signs of respiratory distress observed and patient tolerating po fluids. Will discharge to home for continued monitoring. 06/05/2020 06:46 Co-signature as Attending Physician, Eduar Vasquez MD I agree with the assessment and c john plan of care. Signatures: Dispatcher [employer] Nicolle Hernandez RN RN aj1 Eduar Vasquez MD MD cha Page, Corey, PA PA cp Jessa, Barbara wh Corrections: (The following items were deleted from the chart) 06/03 21:06 21:05 Normal except: K 3.3; CL 110; BUN 19; GFR 62. cp cp 21:46 20:58 06/03/2020 20:58 Transfer ordered to [facility]. cp Diagnosis is Esophoria. Reason for transfer: Higher level of care. Accepting physician is Doctor. Condition is Stable. Problem is new. Symptoms are unchanged. cp 21:46 21:46 06/03/2020 20:58 Transfer ordered to [facility]. cp Diagnosis is Foreign body in esophagus - resolved. Reason for transfer: Higher level of care. Accepting physician is Doctor. Condition is Stable. Problem is new. Symptoms are unchanged. cp 22:13 21:47 06/03/2020 21:47 Discharged to Home. Impression: Foreign body in esophagus; wh Hypertensive heart disease. Condition is Stable. Forms are Medication Reconciliation Form, Thank You Letter, Antibiotic Education, Prescription Opioid Use. Follow up: Private Physician; When: 2 - 3 days; Reason: elevated blood pressure. Problem is new. Symptoms have improved. cp
--- NOTE | 2020-06-03 20:59 | ER ---
Nurse's Notes [facility] Name: Mary Leiva Age: 49 yrs Sex: Female : 1970 Arrival Date: 06/03/2020 Time: 19:27 Bed 19 Private MD: Diagnosis: Foreign body in esophagus;Hypertensive heart disease Presentation: 06/03 19:31 Chief complaint: Patient states: She was eating some meat and it got stuck in her aj1 throat and wont go down. States that she is having trouble swallowing her spit, she throws up every time that she does. States that her SBP has been in the 200's recently when she's checked it at home. Coronavirus screen: Client denies travel out of the [place] in the last 14 days. At this time, the client does not indicate any symptoms associated with coronavirus-19. Ebola Screen: Patient denies travel to an Ebola-affected area in the 21 days before illness onset. Initial Sepsis Screen: Does the patient meet any 2 criteria? HR > 90 bpm. No. Patient's initial sepsis screen is negative. Does the patient have a suspected source of infection? No. Patient's initial sepsis screen is negative. Risk Assessment: Do you want to hurt yourself or someone else? Patient reports no desire to harm self or others. Onset of symptoms was June 03, 2020. 19:31 Method Of Arrival: Ambulatory aj1 19:31 Acuity: ADRIAN 2 aj1 Triage Assessment: 19:33 General: Appears in no apparent distress. comfortable, Behavior is calm, cooperative, aj1 appropriate for age. Pain: Denies pain. Neuro: Level of Consciousness is awake, alert, obeys commands. Cardiovascular: Patient's skin is warm and dry. Respiratory: Airway is patent Respiratory effort is even, unlabored, Respiratory pattern is regular, symmetrical. 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 - Social history:: Smoking status: Patient reports the use of cigarette tobacco products, smokes one-half pack cigarettes per day. Screenin:40 Abuse screen: Denies threats or abuse. Denies injuries from another. Nutritional wh screening: No deficits noted. Tuberculosis screening: No symptoms or risk factors identified. Fall Risk None identified. Assessment: 19:45 General: Appears uncomfortable, Behavior is cooperative. Pain: Denies pain. Neuro: wh Level of Consciousness is awake, alert, obeys commands, Oriented to person, place, time, situation, Appropriate for age. Cardiovascular: Heart tones S1 S2. Respiratory: Airway is patent Respiratory effort is even, unlabored, Respiratory pattern is regular, symmetrical, Breath sounds are clear bilaterally. GI: Abdomen is flat, non-distended. : No signs and/or symptoms were reported regarding the genitourinary system. EENT: Oral mucosa is moist. Throat is pink with gag reflex present. Derm: Skin is intact, is healthy with good turgor, Skin is pink, warm \T\ dry. normal. Musculoskeletal: Circulation, motion, and sensation intact. 20:25 Reassessment: Pt states she feels like her throat is swelling, respirations are equal wh and breath sounds are equal. Pt O2 sat at 100% RA. Pt states she feels like the meat is still stuck and is not progressing. Notified Provider. 21:02 Reassessment: Provider at bedside explaining POC. Pt states the meat went down, water wh was given and Pt was able to swallow. Pt will be monitored. 22:00 Reassessment: Patient appears in no apparent distress at this time. Patient and/or wh family updated on plan of care and expected duration. Pain level reassessed. Patient is alert, oriented x 3, equal unlabored respirations, skin warm/dry/pink. Patient states feeling better. Patient states symptoms have improved. Vital Signs: 19:31 BP 209 / 133; Pulse 98; Resp 18; Temp 99.1; Pulse Ox 100% on R/A; Weight 54.43 kg (R); aj1 Height 5 ft. 2 in. (157.48 cm) (R); Pain 0/10; 20:15 BP 175 / 131; Pulse 91; Resp 20; Pulse Ox 100% ; wh 21:00 BP 195 / 114; Pulse 92; Resp 18; Pulse Ox 99% on R/A; wh 22:00 BP 164 / 88; Pulse 100; Resp 18; Pulse Ox 100% on R/A; wh 19:31 Body Mass Index 21.95 (54.43 kg, 157.48 cm) aj1 ED Course: 19:27 Patient arrived in ED. ag3 19:32 Triage completed. aj1 19:33 Arm band placed on Patient placed in an exam room. aj1 19:36 Barbara Germain is Primary Nurse. 19:37 Eduar Walden PA is PHCP. cp 19:37 Eduar Vasquez MD is Attending Physician. cp 20:00 Patient has correct armband on for positive identification. Bed in low position. Call light in reach. Side rails up X 1. engine monitor on. Pulse ox on. NIBP on. 20:00 Inserted saline lock: 20 gauge in right forearm, using aseptic technique. Blood mt collected. 20:35 Initiated transfer at [facility] with Hawa. She spoke with LEE ANN Leigh as well. eb 20:47 Hawa called back with their GI Physician to speak with LEE ANN Leigh regarding the pt eb case. 20:57 Hawa called back with their ER Physician to speak with LEE ANN Leigh regarding the pt eb case. 22:12 No provider procedures requiring assistance completed. IV discontinued, intact, wh bleeding controlled, No redness/swelling at site. Administered Medications: 20:00 Drug: NS 0.9% 1000 ml Route: IV; Rate: 1 bolus; Site: right forearm; 22:14 Follow up: Response: No adverse reaction; IV Status: Completed infusion 20:02 Drug: GlucaGen 1 mg Route: IVP; Site: right forearm; 20:36 Follow up: Response: No adverse reaction 20:04 Drug: Zofran (Ondansetron) 4 mg Route: IVP; Site: right forearm; 20:36 Follow up: Response: No adverse reaction 20:16 Drug: hydrALAZINE 10 mg Route: IV; Rate: calculated rate; Site: right forearm; 20:36 Follow up: Response: No adverse reaction; Blood pressure is lowered; IV Status: Completed infusion 20:30 Drug: Benadryl 25 mg Route: IVP; Site: right forearm; 21:03 Follow up: Response: No adverse reaction 20:32 Drug: Pepcid 20 mg Route: IVP; Site: right forearm; 21:04 Follow up: Response: No adverse reaction 20:34 Drug: SOLU-Medrol 125 mg Route: IVP; Site: right forearm; 21:04 Follow up: Response: No adverse reaction 20:41 Drug: Zofran (Ondansetron) 4 mg Route: IVP; Site: right forearm; 21:04 Follow up: Response: No adverse reaction 21:11 Drug: Benadryl 25 mg Route: IVP; Site: right forearm; 21:21 Follow up: Response: No adverse reaction 21:31 Drug: Potassium Effervescent Tablet 25 mEq Route: PO; 21:52 Follow up: Response: No adverse reaction 21:31 Drug: hydrALAZINE 10 mg Route: IV; Rate: calculated rate; Site: right forearm; 21:52 Follow up: Response: No adverse reaction; Blood pressure is lowered; IV Status: Completed infusion 22:00 Drug: Lisinopril 20 mg Route: PO; 22:11 Follow up: Response: No adverse reaction Outcome: 20:58 ER care complete, transfer ordered by MD. cp 21:47 Discharge ordered by MD. cp 22:12 Discharged to home ambulatory, with family. 22:12 Condition: stable 22:12 Discharge instructions given to patient, family, Instructed on discharge instructions, follow up and referral plans. medication usage, POC Demonstrated understanding of instructions, follow-up care, medications, POC 22:13 Patient left the ED. Signatures: Nicolle Gabriel RN RN aj1 Eduar Walden PA PA tony Foss, [facility], [facility] Sav[facility] Tesfaye Alice ag3 Corrections: (The following items were deleted from the chart) 19:34 19:31 Chief complaint: Patient states: She was eating some meat and it got stuck in her aj1 throat and wont go down. States that she is having trouble swallowing her spit, she throws up every time that she does aj1
[2020-06-03] MEDS ORDERED: POTASSIUM 25 MEQ EFFERV TAB ONE (21:41)
[2020-06-03] MEDS ORDERED: lisinopriL 20 MG TAB ONE (22:17)
[2020-06-03 22:41] VITALS: TEMP 99.1
[2020-06-03 22:49] VITALS: BP 164/88; O2SAT 100
== END 2020-06-03 22:13 | disposition home or self-care (01) ==
LOC: ER 19:25
DX: T18.108A Unspecified foreign body in esophagus causing other injury, initial encounter (principal); I11.9 Hypertensive heart disease without heart failure; F17.210 Nicotine dependence, cigarettes, uncomplicated; Z88.2 Allergy status to sulfonamides; Z91.048 Other nonmedicinal substance allergy status
CPT/HCPCS: 96365; 96361; 85025; 80048; 36415; 96375; 99284; J0360 ×2; J1610; J1200 ×2; J7030; J2930; J2405 ×2

== ENCOUNTER 2020-12-30 04:23 | Emergency (ER) | payer BC ==
--- OUTSIDE RECORDS SUMMARY | 2020-12-30 04:26 | XMS REPORT | Continuity of Care Document ---
:1970 Author Organization [facility] t Address [address] [place] [address] Care Team Providers Name Role Phone Sudha CISNEROS, Jenna Attending Clinician Farhana SHELDON Attending Clinician Unavailable Jean CISNEROS, L Attending Clinician Unavailable Vinicio KOENIGP Attending Clinician Bret KEANE, G Attending Clinician Ezra KEANE, M Attending Clinician Amado Streeter RN, R Attending Clinician Unavailable Ezra KEANE, M Admitting Clinician Problems This patient has no known problems. Allergies, Adverse Reactions, Alerts This patient has no known allergies or adverse reactions. Medications This patient has no known medications. Procedures This patient has no known procedures. Encounters Start End Encounter Admission Attending Care Care Encounter Source Date/Time Date/Time Type Type Clinicians Facility Department ID 2020-12-28 2020-12-28 Transition Myra Haley [id number] 00:00:00 00:00:00 of Care Catherine Reyes [id number] Lani [id number] 2020-12-28 2020-12-28 HAYDEE Reed [id number] 00:00:00 00:00:00 Management Demi Dillard [facility] [id number] [facility] [id number] 2020-12-28 2020-12-28 Case Jean, [facility] [id number] 00:00:00 00:00:00 Management Kane Rdz [facility] [id number] [facility] [id number] 2020-12-25 2020-12-27 [facility] Sameera Janice [id number] 21:38:00 23:05:00 Encounter Melissa Queen [id number] [facility] [id number] 2020-12-22 2020-12-22 Case Amado Streeter, [facility] [id number] 00:00:00 00:00:00 Management Kyra Jamil [facility] [id number] [facility] [id number] 2020-12-22 2020-12-22 Case Jean, [facility] [id number] 00:00:00 00:00:00 Management Kane Rdz [facility] [id number] [facility] [id number] Results This patient has no known results.
[2020-12-30] MEDS ORDERED: MORPHINE 4 MG/ML SYR ONE ×2 (04:49→05:21)
[2020-12-30] MEDS ORDERED: ONDANSETRON 4 MG/2 ML VIAL ONE (04:50)
[2020-12-30 04:52] LABS: Absolute Lymphocytes (CBC) 3.7 K/uL (0.7-4.9); Basophils % 0.9 % (0-1.3); Hematocrit 26.9 % (36.0-45.0); Lymphocytes % 50.6 % (15.3-44.8); MPV 7.6 fL (7.6-11.3); RBC Red Blood Cell Count 2.89 M/uL (3.86-4.86)
[2020-12-30 04:55] LABS: Protime INR 0.92
--- NOTE | 2020-12-30 05:19 | ER ---
Nurse's Notes [facility] Name: Mary Leiva Age: 50 yrs Sex: Female : 1970 Arrival Date: 12/30/2020 Time: 04:24 Bed 23 Private MD: Diagnosis: Chest pain, unspecified;Essential (primary) hypertension;Dissection of aorta;Coronavirus infection, unspecified-covid 19;End stage renal disease-on hemodialysis Presentation: 12/30 04:42 Chief complaint: Patient states: Pt BIB EMS from home for c/o elisha upper back pain that ad5 began this am. Pt Covid+, on O2 4L via NC at home. HD pt TThSa, has not missed. Pt yelling and restless in stretcher upon arrival to ED. MD at bedside. EKG and CXR obtained. HRR on CM, skin pwd. Coronavirus screen: Client denies travel out of the [place] in the last 14 days. Client presents with at least one sign or symptom that may indicate coronavirus-19. Standard/surgical mask placed on the client. Provider contacted for isolation considerations. Client reports previous positive COVID test result. Ebola Screen: Patient negative for fever greater than or equal to 101.5 degrees Fahrenheit, and additional compatible Ebola Virus Disease symptoms Patient denies exposure to infectious person. Patient denies travel to an Ebola-affected area in the 21 days before illness onset. No symptoms or risks identified at this time. Initial Sepsis Screen: Does the patient meet any 2 criteria? No. Patient's initial sepsis screen is negative. Initial Sepsis Screen: Does the patient have a suspected source of infection? Yes: Productive cough/pneumonia. Risk Assessment: Do you want to hurt yourself or someone else? Patient reports no desire to harm self or others. 04:42 Method Of Arrival: EMS ad5 04:42 Acuity: ADRIAN 2 ad5 Historical: - Allergies: 05:18 aloe vera (rash); ea 05:18 Sulfa (Sulfonamide Antibiotics) (Anaphylaxis); ea - Home Meds: 05:24 amlodipine 10 mg tab 1 tab once daily for Hypertension [Active]; carvedilol 6.25 mg ad5 oral tab 1 tab 2 times per day for Hypertension [Active]; dapsone 100 mg Oral tab 1 tab once daily [Active]; ergocalciferol (vitamin D2) oral 1,250 mcg oral 1 cap once wkly [Active]; melatonin 3 mg Oral tab nightly [Active]; pantoprazole 40 mg oral TbEC 1 tab once daily [Active]; sevelamer HCl oral 800 mg oral 1 tab 3 times per day [Active]; triamcinolone acetonide 0.1 % Topical crea 2 times per day [Active]; - PMHx: 05:18 hiatal hernia; HIV; ea 05:21 Dialysis; ad5 - Immunization history:: Adult Immunizations unknown. - Family history:: not pertinent. - Social history:: Smoking status: unknown. Screenin:47 Abuse screen: Denies threats or abuse. Denies injuries from another. Nutritional ad5 screening: No deficits noted. Tuberculosis screening: No symptoms or risk factors identified. Fall Risk No fall in past 12 months (0 pts). Secondary diagnosis (15 points) IV access (20 points). Ambulatory Aid- None/Bed Rest/Nurse Assist (0 pts). Gait- Normal/Bed Rest/Wheelchair (0 pts) Mental Status- Oriented to own ability (0 pts). Total Morgan Fall Scale indicates Low Risk Score (25-44 pts). Fall prevention measures have been instituted. Side Rails Up X 2 Frequent Obs/Assesments occuring. Assessment: 04:45 General: Appears distressed, uncomfortable, Behavior is agitated, restless, ad5 uncooperative. Pain: Complains of pain in left scapular area, right scapular area and thoracic area Pain currently is 10 out of 10 on a pain scale. Neuro: Level of Consciousness is awake, alert, Oriented to person, place, time, situation, Appropriate for age Moves all extremities. Speech is normal, Facial symmetry appears normal, Intact. Cardiovascular: Reports chest pain, shortness of breath, Heart tones present Capillary refill < 3 seconds Patient's skin is warm and dry. Rhythm is regular Chest pain is located in anterior chest wall. Respiratory: Reports shortness of breath cough that is pain with cough pain with movement pain with respiration Airway is patent Trachea midline Respiratory effort is even, unlabored, Respiratory pattern is regular, symmetrical. GI: No deficits noted. : No deficits noted. EENT: No deficits noted. Derm: No deficits noted. Skin is pink, warm \\T\\ dry. Derm:. Musculoskeletal: No deficits noted. 05:03 Reassessment: Pt taken to CT. ea 05:17 Reassessment: Patient and/or family updated on plan of care and expected duration. Pain ea level reassessed. Pt returned from CT. 05:25 Reassessment: Cardene drip titrated to 10mg/hr per protocol for continued elevated BP ad5 to sustain ordered parameters by MD. Pt remains awake and alert, denies new or worsening c/o. Will continue to monitor. 05:33 Reassessment: Pt resting comfortably in stretcher at this time, reports improvement in ad5 s/s. Pt resp even/unlabored, remains on O2 via NC. HRR on CM. VSS. Pt denies needs at this time. Bed remains low and locked, bedrails x 2, call light within reach. NAD noted, will continue to monitor. Patient states feeling better. Patient states symptoms have improved. 05:45 Reassessment: Cardene drip to 15 mg/hr for continued elevated BP. Provider aware, ad5 awaiting further orders. 06:00 Reassessment: Pt with noted low O2 sat on NC at this time, placed on Venti mask with ad5 minimal improvement noted. Pt placed on NRB 15L with improvement in O2 sat to 97%. MD aware. 06:16 Reassessment: Pt report to BLAYNE Mccall at [facility], questions/concerns addressed. Consent ad5 signed for transfer by pt and witnessed by this RN. 06:40 Reassessment: Patient and/or family updated on plan of care and expected duration. Pain ea level reassessed. [facility] at facility for transfer, report given to [facility]. Pt alert and oriented, respirations even and unlabored, A and O x 3. Pt left ED via stretcher per EMS. Vital Signs: 04:25 BP 167 / 109; Pulse 89; Resp 22; Pulse Ox 95% ; Weight 49.9 kg; ad5 04:42 BP 145 / 115; Pulse 87; Resp 22; Temp 97.6; Pulse Ox 95% on 4 lpm NC; Pain 10/10; ad5 04:46 BP 165 / 102; Pulse 78; Resp 22; Pulse Ox 93% ; ea 05:08 BP 188 / 103; Pulse 86; Resp 22; Pulse Ox 94% ; ea 05:20 BP 168 / 88; Pulse 81; Resp 22; Pulse Ox 90% ; Pain 6/10; ad5 05:30 BP 133 / 79; Pulse 86; Resp 20; Pulse Ox 93% on 4 lpm NC; ad5 05:40 BP 141 / 82; Pulse 94; Resp 18 S; Pulse Ox 93% on 4 lpm NC; ad5 05:48 BP 130 / 74; Pulse 87; Resp 18 S; Pulse Ox 95% on 4 lpm NC; ad5 06:00 BP 111 / 71; Pulse 70; Resp 17 S; Pulse Ox 98% on 15% Non-rebreather mask; ad5 06:15 BP 113 / 78; Pulse 71; Resp 18 S; Pulse Ox 95% on 15% Non-rebreather mask; ad5 ED Course: 04:24 Patient arrived in ED. fausto 04:25 Eduar Vasquez MD is Attending Physician. fausto 04:35 Initial lab(s) drawn, by me, sent to lab. First set of blood cultures drawn by me, EKG ad5 done, by ED staff. Oxygen administration via nasal cannula \\T\\ 4L/min. 04:40 XRAY Chest (1 view) In Process Unspecified. EDMS 04:42 Arthur Greene is Primary Nurse. ad5 04:45 Triage completed. ad5 04:47 No provider procedures requiring assistance completed. Inserted saline lock: 22 gauge ad5 in left forearm, using aseptic technique. 04:48 Patient has correct armband on for positive identification. Bed in low position. Call ad5 light in reach. Side rails up X2. 04:48 Door closed. Noise minimized. Head of bed lowered. ad5 04:58 CT Aorta for Dissection Sent. ad5 05:08 Initiated transfer at [facility] with Valerie Mo. tt3 05:11 CT Aorta for Dissection In Process Unspecified. EDMS 05:13 Dr. Vasquez initiated transfer at [facility] with Liberty Mullins. tt3 05:17 Inserted saline lock: 22 gauge in right forearm, using aseptic technique. ea 05:17 Arm band placed on right wrist. Patient placed in an exam room, on a stretcher, on ea prop worker, on pulse oximetry. 05:22 Patient transferred, IV remains in place. ea 05:24 Valerie Mo called back and stated that they had no covid icu beds available so they tt3 would have to decline the transfer request. 05:27 Liberty Mullins called back and stated that they had to decline at the [facility] due to tt3 no beds. 05:28 COVID-19 : Document "Date of Symptom Onset" if Symptomatic. Sent. ad5 05:31 Initiated transfer at [facility] with Colby. Stated she was paging the CV surgeon and tt3 would call back. 05:32 Liberty with [facility] stated that no campuses have beds available. tt3 05:41 Colby with [facility] called back with their CV surgeon for consult with Dr. Vasquez. tt3 Administered Medications: 04:30 Drug: morphine 4 mg {Note: RASS 0.} Route: IVP; Site: left forearm; ad5 05:28 Follow up: Response: No adverse reaction ad5 04:30 Drug: Zofran (Ondansetron) 4 mg Route: IVP; Site: left forearm; ad5 05:28 Follow up: Response: No adverse reaction ad5 05:12 Not Given (Duplicate Order): Zithromax (azithromycin) 500 mg IVPB once over 1 hrs; mix fausto in 250 mL NS 05:20 Drug: Cardene (niCARdipine) 5 mg/hr Route: IV; Rate: per protocol; Site: left forearm; ad5 06:41 Follow up: Response: No adverse reaction; IV Status: Infusion continued upon transfer ea 05:20 Drug: morphine 4 mg {Note: RASS 0.} Route: IVP; Site: left forearm; ad5 06:41 Follow up: Response: No adverse reaction ea 05:23 Drug: Pepcid (famotidine) 20 mg Route: IVP; Site: right forearm; ad5 06:41 Follow up: Response: No adverse reaction ea 05:25 Drug: Rocephin (cefTRIAXone) 1 grams Route: IV; Rate: per protocol; Site: right forearm;ad5 05:36 Follow up: IV Status: Completed infusion ad5 05:30 Not Given (HD pt): NS 0.9% 1000 ml IV at 125 ml/hr continuous ad5 06:15 Drug: Trandate (labetalol) 20 mg {Note: 10mg IVP doses x 2 per MD VORB.} Route: IVP; ad5 Site: right forearm; 06:41 Follow up: Response: No adverse reaction ea 06:41 Drug: Trandate (labetalol) 20 mg {Note: 10mg IV administered at this time per MD VORB ad5 prior to transfer from ED.} Route: IVP; Site: right forearm; Outcome: 05:18 ER care complete, transfer ordered by . fausto 05:22 Instructed on the need for transfer. ea 06:33 Transferred by ground EMS to [facility]. ad5 06:33 Condition: stable 06:43 Patient left the ED. ad5 Signatures: Dispatcher [employer] EDMS Eduar Vasquez MD MD cha Antunez, Elena RN RN Mc Rivas tt3 Arthur Greene ad5 Corrections: (The following items were deleted from the chart) 05:36 04:25 BP 167 / 109; Pulse 89bpm; Resp 22bpm; Pulse Ox 95%; ea ad5 05:37 04:30 morphine 4 mg IVP in left forearm ad5 ad5 05:37 05:20 morphine 4 mg IVP in left forearm ad5 ad5 05:45 05:44 Reassessment: Cardene drip titrated to 10mg/hr per protocol for continued ad5 elevated BP to sustain ordered parameters by . Pt remains awake and alert, denies new or worsening c/o. Will continue to monitor. ad5 05:48 05:20 BP 168 / 88; Pulse 81bpm; Resp 22bpm; Pulse Ox 90%; ea ad5 06:43 06:16 Reassessment: Pt report to Trauma RN at [facility], questions/concerns addressed. ad5 Consent signed for transfer by pt and witnessed by this RN. ad5
--- NOTE | 2020-12-30 05:19 | EDPHYS ---
Physician Documentation [facility] Name: Mary Leiva Age: 50 yrs Sex: Female : 1970 Arrival Date: 12/30/2020 Time: 04:24 Bed 23 Private MD: ED Physician Eduar Vasquez HPI: 12/30 04:38 This 50 yrs old Female presents to ER via Unassigned with complaints of chest fausto pain, back pain and sob. 04:38 The patient has shortness of breath at rest. Onset: The symptoms/episode began/occurred fausto just prior to arrival, this morning. Duration: The symptoms are continuous, and are steadily getting worse. The patient's shortness of breath is aggravated by nothing, is alleviated by nothing. The patient or guardian reports chest pain that is located primarily in the anterior chest wall, chest diffusely. Onset: just prior to arrival, this morning. The patient has elevated blood pressure and discovered this. Onset: The symptoms/episode began/occurred. Modifying factors: The symptoms are aggravated by activity, The symptoms are alleviated by remaining still. Associated signs and symptoms: Pertinent positives: chest pain. Historical: - Allergies: 05:18 aloe vera (rash); ea 05:18 Sulfa (Sulfonamide Antibiotics) (Anaphylaxis); ea - Home Meds: 05:24 amlodipine 10 mg tab 1 tab once daily for Hypertension [Active]; carvedilol 6.25 mg ad5 oral tab 1 tab 2 times per day for Hypertension [Active]; dapsone 100 mg Oral tab 1 tab once daily [Active]; ergocalciferol (vitamin D2) oral 1,250 mcg oral 1 cap once wkly [Active]; melatonin 3 mg Oral tab nightly [Active]; pantoprazole 40 mg oral TbEC 1 tab once daily [Active]; sevelamer HCl oral 800 mg oral 1 tab 3 times per day [Active]; triamcinolone acetonide 0.1 % Topical crea 2 times per day [Active]; - PMHx: 05:18 hiatal hernia; HIV; ea 05:21 Dialysis; ad5 - Immunization history:: Adult Immunizations unknown. - Family history:: not pertinent. - Social history:: Smoking status: unknown. ROS: 04:40 Constitutional: Negative for fever, chills, and weight loss, Eyes: Negative for injury, fausto pain, redness, and discharge, ENT: Negative for injury, pain, and discharge, Neck: Negative for injury, pain, and swelling, Abdomen/GI: Negative for abdominal pain, nausea, vomiting, diarrhea, and constipation, Back: Negative for injury and pain, : Negative for injury, bleeding, discharge, and swelling, MS/Extremity: Negative for injury and deformity, Skin: Negative for injury, rash, and discoloration, Neuro: Negative for headache, weakness, numbness, tingling, and seizure, Psych: Negative for depression, anxiety, suicide ideation, homicidal ideation, and hallucinations, Allergy/Immunology: Negative for hives, rash, and allergies, Endocrine: Negative for neck swelling, polydipsia, polyuria, polyphagia, and marked weight changes, Hematologic/Lymphatic: Negative for swollen nodes, abnormal bleeding, and unusual bruising. 04:40 Cardiovascular: Positive for chest pain, of the chest. 04:40 Respiratory: Positive for cough, shortness of breath, at rest. 04:40 Back: Positive for pain at rest, of the left subscapular area, right subscapular area and thoracic area. Exam: 04:40 Constitutional: This is a well developed, well nourished patient who is awake, alert, fausto and in no acute distress. Head/Face: Normocephalic, atraumatic. Eyes: Pupils equal round and reactive to light, extra-ocular motions intact. Lids and lashes normal. Conjunctiva and sclera are non-icteric and not injected. Cornea within normal limits. Periorbital areas with no swelling, redness, or edema. ENT: Nares patent. No nasal discharge, no septal abnormalities noted. Tympanic membranes are normal and external auditory canals are clear. Oropharynx with no redness, swelling, or masses, exudates, or evidence of obstruction, uvula midline. Mucous membranes moist. Neck: Trachea midline, no thyromegaly or masses palpated, and no cervical lymphadenopathy. Supple, full range of motion without nuchal rigidity, or vertebral point tenderness. No Meningismus. Chest/axilla: Normal chest wall appearance and motion. Nontender with no deformity. No lesions are appreciated. Cardiovascular: Regular rate and rhythm with a normal S1 and S2. No gallops, murmurs, or rubs. Normal PMI, no JVD. No pulse deficits. Respiratory: Lungs have equal breath sounds bilaterally, clear to auscultation and percussion. No rales, rhonchi or wheezes noted. No increased work of breathing, no retractions or nasal flaring. Abdomen/GI: Soft, non-tender, with normal bowel sounds. No distension or tympany. No guarding or rebound. No evidence of tenderness throughout. Back: No spinal tenderness. No costovertebral tenderness. Full range of motion. Skin: Warm, dry with normal turgor. Normal color with no rashes, no lesions, and no evidence of cellulitis. MS/ Extremity: Pulses equal, no cyanosis. Neurovascular intact. Full, normal range of motion. Neuro: Awake and alert, GCS 15, oriented to person, place, time, and situation. Cranial nerves II-XII grossly intact. Motor strength 5/5 in all extremities. Sensory grossly intact. Cerebellar exam normal. Normal gait. 04:40 Musculoskeletal/extremity: DVT Exam: No signs of deep vein thrombosis. no pain, no swelling, no tenderness, negative Homans' sign noted on exam, no appreciated bluish discoloration, no erythema, no increased warmth. 04:45 ECG was reviewed by the Attending Physician. fausto Vital Signs: 04:25 BP 167 / 109; Pulse 89; Resp 22; Pulse Ox 95% ; Weight 49.9 kg; ad5 04:42 BP 145 / 115; Pulse 87; Resp 22; Temp 97.6; Pulse Ox 95% on 4 lpm NC; Pain 10/10; ad5 04:46 BP 165 / 102; Pulse 78; Resp 22; Pulse Ox 93% ; ea 05:08 BP 188 / 103; Pulse 86; Resp 22; Pulse Ox 94% ; ea 05:20 BP 168 / 88; Pulse 81; Resp 22; Pulse Ox 90% ; Pain 6/10; ad5 05:30 BP 133 / 79; Pulse 86; Resp 20; Pulse Ox 93% on 4 lpm NC; ad5 05:40 BP 141 / 82; Pulse 94; Resp 18 S; Pulse Ox 93% on 4 lpm NC; ad5 05:48 BP 130 / 74; Pulse 87; Resp 18 S; Pulse Ox 95% on 4 lpm NC; ad5 06:00 BP 111 / 71; Pulse 70; Resp 17 S; Pulse Ox 98% on 15% Non-rebreather mask; ad5 06:15 BP 113 / 78; Pulse 71; Resp 18 S; Pulse Ox 95% on 15% Non-rebreather mask; ad5 MDM: 04:25 Patient medically screened. [facility] 04:42 Differential diagnosis: Anxiety Reaction CHF exacerbation, Chronic Obstructive fausto Pulmonary Disease abnormal EKG, acute myocardial infarction, chest wall pain, cholecystitis, Cholelithiasis costochondritis, Malignant HTN, gastritis, hiatal hernia, pancreatitis, pleurisy, pneumothorax, pulmonary embolus, stable angina, unstable angina, Myocardial Infarction pneumonia, Pneumothorax pulmonary edema, Pulmonary Embolism reactive airway disease. Antibiotic administration: Rocephin and Zithromax given. HEART Score: History: Moderately Suspicious (1), ECG: Normal (0). The patient was given aspirin in the Emergency Department. The patient's Wells Deep Vein Thrombosis Score was calculated as follows: Total Score: 0. This patient was found to be at low risk for a deep vein thrombosis by using the Well's assessment criteria Total Score: 0-2 Pts- Low Risk. The patient's pulmonary embolism risk score was calculated as follows: Total Score: 0-2 points. This patient was found to be at low risk for a pulmonary embolism by using the Well's assessment criteria. Immunization status: Influenza vaccine: Data reviewed: vital signs, nurses notes, lab test result(s), EKG, radiologic studies, CT scan, plain films. Data interpreted: traffic monitor specialist: rate is 86 beats/min, rhythm is regular, Pulse oximetry: on room air is 95 %. Test interpretation: by ED physician or midlevel provider: ECG, plain radiologic studies. 12/30 04:27 Order name: Basic Metabolic Panel [facility] 12/30 04:27 Order name: CBC with Diff [facility] 12/30 04:27 Order name: LFT's; Complete Time: 06:08 [facility] 12/30 04:27 Order name: Magnesium; Complete Time: 06:08 [facility] 12/30 04:27 Order name: NT PRO-BNP; Complete Time: 06:08 [facility] 12/30 04:27 Order name: PT-INR; Complete Time: 06:08 [facility] 12/30 04:27 Order name: Troponin (emerg Dept Use Only); Complete Time: 06:08 [facility] 12/30 04:27 Order name: XRAY Chest (1 view) [facility] 12/30 04:27 Order name: Blood Culture Adult (2) [facility] 12/30 04:28 Order name: Basic Metabolic Panel; Complete Time: 06:08 EDMS 12/30 04:28 Order name: CBC with Automated Diff; Complete Time: 04:54 EDMS 12/30 05:16 Order name: COVID-19 : Document "Date of Symptom Onset" if Symptomatic. 12/30 04:27 Order name: EKG; Complete Time: 04:28 fausto 12/30 04:27 Order name: Cardiac monitoring; Complete Time: 04:49 fausto 12/30 04:38 Order name: CT Aorta for Dissection [facility] 12/30 04:27 Order name: EKG - Nurse/Tech; Complete Time: 04:49 fausto 12/30 04:27 Order name: IV Saline Lock; Complete Time: 04:49 fausto 12/30 04:27 Order name: Labs collected and sent; Complete Time: 04:49 fausto 12/30 04:27 Order name: O2 Per Protocol; Complete Time: 04:49 fausto 12/30 04:27 Order name: O2 Sat Monitoring; Complete Time: 04:49 [facility] 12/30 04:27 Order name: Urine Dipstick-Ancillary (obtain specimen) [facility] 12/30 05:39 Order name: IV Saline Lock - Large Bore; Complete Time: 06:42 fausto EC:45 Rate is 23 beats/min. Rhythm is regular. QRS [place] is Normal. [place] interval is normal. QRS fausto interval is normal. QT interval is normal. No Q waves. T waves are Normal. No ST changes noted. Clinical impression: NSR w/ Non-specific ST/T Changes and No evidence of ischemia. Interpreted by me. Reviewed by me. Administered Medications: 04:30 Drug: morphine 4 mg {Note: RASS 0.} Route: IVP; Site: left forearm; ad5 05:28 Follow up: Response: No adverse reaction ad5 04:30 Drug: Zofran (Ondansetron) 4 mg Route: IVP; Site: left forearm; ad5 05:28 Follow up: Response: No adverse reaction ad5 05:12 Not Given (Duplicate Order): Zithromax (azithromycin) 500 mg IVPB once over 1 hrs; mix fausto in 250 mL NS 05:20 Drug: Cardene (niCARdipine) 5 mg/hr Route: IV; Rate: per protocol; Site: left forearm; ad5 06:41 Follow up: Response: No adverse reaction; IV Status: Infusion continued upon transfer ea 05:20 Drug: morphine 4 mg {Note: RASS 0.} Route: IVP; Site: left forearm; ad5 06:41 Follow up: Response: No adverse reaction ea 05:23 Drug: Pepcid (famotidine) 20 mg Route: IVP; Site: right forearm; ad5 06:41 Follow up: Response: No adverse reaction ea 05:25 Drug: Rocephin (cefTRIAXone) 1 grams Route: IV; Rate: per protocol; Site: right forearm;ad5 05:36 Follow up: IV Status: Completed infusion ad5 05:30 Not Given (HD pt): NS 0.9% 1000 ml IV at 125 ml/hr continuous ad5 06:15 Drug: Trandate (labetalol) 20 mg {Note: 10mg IVP doses x 2 per MD BURGER.} Route: IVP; ad5 Site: right forearm; 06:41 Follow up: Response: No adverse reaction ea 06:41 Drug: Trandate (labetalol) 20 mg {Note: 10mg IV administered at this time per MD BURGER ad5 prior to transfer from ED.} Route: IVP; Site: right forearm; Disposition: 12/30/20 05:18 Transfer ordered to [facility]. Diagnosis are Chest pain, unspecified, Essential (primary) hypertension, Dissection of aorta, Coronavirus infection, unspecified - covid 19, End stage renal disease - on hemodialysis. - Reason for transfer: Higher level of care. - Accepting physician is to [facility]. - Condition is Critical. - Problem is new. - Symptoms have improved. Signatures: Dispatcher [employer] [facility] Eduar Vasquez MD MD cha Antunez, Elena, RN RN Arthur Mcfarland ad5 Corrections: (The following items were deleted from the chart) 04:40 04:29 Chest For PE Angio+CT.RAD.BRZ ordered. [facility] EDMS 05:33 05:17 CORONAVIRUS ordered. [facility] EDOH 05:33 05:18 12/30/2020 05:18 Transfer ordered to [facility]. Diagnosis is Chest fausto pain, unspecified; Essential (primary) hypertension; Dissection of aorta; Coronavirus infection, unspecified - covid 19; End stage renal disease - on hemodialysis. Reason for transfer: Higher level of care. Accepting physician is to [facility]. Condition is Critical. Problem is new. Symptoms have improved. fausto 06:43 05:33 12/30/2020 05:18 Transfer ordered to [facility]. Diagnosis is Chest pain, ad5 unspecified; Essential (primary) hypertension; Dissection of aorta; Coronavirus infection, unspecified - covid 19; End stage renal disease - on hemodialysis. Reason for transfer: Higher level of care. Accepting physician is to [facility]. Condition is Critical. Problem is new. Symptoms have improved. fausto
[2020-12-30] MEDS ORDERED: AZITHROMYCIN 500 MG INJ IVPB ONE (05:21)
[2020-12-30] MEDS ORDERED: CEFTRIAXONE 1000 MG/VIAL ONE (05:21)
[2020-12-30] MEDS ORDERED: NA CHLORIDE 0.9% 250 ML ONE (05:21)
[2020-12-30] MEDS ORDERED: FAMOTIDINE 20 MG/2 ML VIAL IV ONE (05:22)
[2020-12-30] MEDS ORDERED: NA CHLORIDE 0.9% 50 ML ONE (05:22)
[2020-12-30] MEDS ORDERED: Nicardipine/NS 25 MG/250 ML KIT IV ONE ×2 (05:27→06:54)
[2020-12-30] MEDS ORDERED: LABETALOL 20 MG/4ML SYRINGE IV ONE (05:58)
[2020-12-30 06:04] LABS: Albumin 2.9 g/dL (3.4-5.0); Bilirubin Direct 0.3 mg/dL (0-0.2); Bilirubin Total 0.9 mg/dL (0.2-1.0); Magnesium 2.1 mg/dL (1.8-2.4); Potassium 4.2 mmol/L (3.5-5.1); Protein, Total 8.1 g/dL (6.4-8.2); Troponin (Emerg Dept Use Only) 0.04 ng/mL (0.0-0.045)
[2020-12-30] MEDS ORDERED: ESMOLOL HCL 0 ML IV ONE (06:17)
[2020-12-30 06:53] VITALS: TEMP 97.6
[2020-12-30 07:05] VITALS: BP 113/78; O2SAT 95
--- NOTE | 2020-12-30 08:45 | RAD REPORT ---
EXAM DESCRIPTION: CT Angiography Chest, Abdomen and Pelvis With Intravenous Contrast CLINICAL HISTORY: The patient is 50 years old and is Female; Chest pain; Dyspnea TECHNIQUE: Axial computed tomographic angiography images of the chest, abdomen and pelvis with intra venous contrast. Sagittal and coronal reformatted images were created and reviewed. This CT exam was performed using one or more of the following dose reduction techniques: automated exposure cont rol, adjustment of the mA and/or kV according to patient size, and/or use of iterative reconstruction technique. MIP reconstructed images were created and reviewed. COMPARISON: No relevant prior studies available. FINDINGS: VASCULATURE: Aorta: [place] type B aortic dissection beginning in the distal arch, just distal to the origin of the left subclavian artery. The dissection extends through the abdominal aorta terminating in the proximal right common iliac artery. Ascending aorta is unremarkable. Symmetrically opacified lumens in the abdominal aorta. Pulmonary arteries: No PE identified. Great vessels of aortic arch: The proximal brachiocephalic artery, bilateral common carotid vitaliy cherise and left subclavian artery are unremarkable. Celiac trunk and mesenteric arteries: No acute findings. No occlusion or significant stenosis. Renal arteries: No acute findings. No occlusion or significant stenosis. Iliac arteries: No acute findings. No occlusion or significant stenosis. CHEST: Lungs: Centrilobular emphysema, mild. Pleural space: Bilateral lower lobe edema, mild. Small bilateral pleural effusions. No pneumothorax. Heart: Cardiomegaly. Small amount of pericardial fluid. Mediastinum: Hiatal hernia. ABDOMEN: Liver: Mild hepatomegaly. Gallbladder and bile ducts: Unremarkable. No calcified stones. No ductal dilation. Pancreas: Unremarkable. No ductal dilation. No mass. Spleen: Spleen is in the upper limits of normal in size. Adrenals: Right adrenal adenoma, 12 mm. No follow-up imaging recommended. Left adrenal hyperplasia. Kidneys and ureters: Left perinephric subcapsular hematoma, 2.7 cm in greatest thickness. No def inite active bleeding. Radiopaque foreign objects are noted in the region of the left renal hilum whi ch may be from prior embolization. Right kidney is unremarkable. No hydronephrosis. No solid mass. Stomach and bowel: Colonic diverticulosis. No bowel dilatation or obstruction. No bowel wall thickening. PELVIS: Appendix: No findings to suggest acute appendicitis. Bladder: Bladder is not well distended. Reproductive: Uterus is present. No adnexal mass visualized. CHEST, ABDOMEN and PELVIS: Intraperitoneal space: Unremarkable. No significant fluid collection. No free air. Bones/joints: Moderate lumbar scoliosis. No acute fracture visualized. No dislocation. Soft tissues: Unremarkable. Lymph nodes: Unremarkable. No enlarged lymph nodes. Tubes, lines and devices: Tunneled right IJ venous dual-lumen catheter terminates just beyond th e SVC/RA junction. IMPRESSION: 1. [place] type B aortic dissection beginning in the aortic arch, just distal to the origin of the left subclavian artery. The dissection extends through the abdominal aorta terminating in the proximal right common iliac artery. 2. Bilateral lower lobe edema, mild. Small bilateral pleural effusions. 3. Left perinephric subcapsular hematoma, 2.7 cm in greatest thickness. No definite active bleeding . Radiopaque foreign objects are noted in the region of the left renal hilum which may be from prior embolization. Clinical correlation suggested. 4. No findings in the abdomen to suggest ischemia. The false and true lumens are symmetrically opac ified in the abdomen. 5. Colonic diverticulosis. 6. Hiatal hernia. 7. Additional non-emergent findings as above. THIS REPORT CONTAINS FINDINGS THAT MAY BE CRITICAL TO PATIENT CARE: The findings were verbally discu ssed via telephone conference with Dr. Vasquez 5:54 AM central time December 30, 2020. The results wer e acknowledged and understood. Electronically signed by: Sarah Russell MD 12/30/2020 6:03 AM CDT Due to temporary technical issues with the PACS/Fluency reporting system, reports are being signed by the in house radiologist without review as a courtesy to ensure prompt reporting. The interpreting r adiologist is fully responsible for the content of the report.
--- NOTE | 2020-12-30 08:51 | RAD REPORT ---
EXAM DESCRIPTION: RAD - Chest Single View - 12/30/2020 4:40 am CLINICAL HISTORY: Cough;Chest pain Chest pain. COMPARISON: Chest Single View dated 06/13/2019; Chest Pa And Lat (2 Views) dated 06/12/2016; Chest Sin gle View dated 06/12/2016; Chest Single View dated 06/11/2016 FINDINGS: Portable technique limits examination quality. Mild interstitial pulmonary edema suspected. The heart is upper limit normal in size. Small hiatal he rnia.Right-sided venous catheter has tip in the right atrial region. IMPRESSION: Mild CHF versus volume overload.
== END 2020-12-30 06:43 | disposition short-term general hospital (02) ==
LOC: ER 04:23
DX: U07.1 COVID-19 (principal); I71.02 Dissection of abdominal aorta; I12.0 Hypertensive chronic kidney disease with stage 5 chronic kidney disease or end stage renal disease; N18.6 End stage renal disease; Z99.2 Dependence on renal dialysis; Z21 Asymptomatic human immunodeficiency virus [HIV] infection status; Z88.2 Allergy status to sulfonamides; Z91.048 Other nonmedicinal substance allergy status
CPT/HCPCS: 93005; 87040 ×2; 85025; 80048; 36415; 83735; 85610; 80076; 84484; 83880; 71275; 74175; 71045; 99285; U0003; Q9967; J0456; J7050; J2405

== ENCOUNTER 2021-01-10 06:34 | Observation (INO) | payer BC, SELFPAY ==
--- OUTSIDE RECORDS SUMMARY | 2021-01-10 06:38 | XMS REPORT | Continuity of Care Document ---
:1970 Author Organization [facility] t Address [address] [place] [address] Care Team Providers Name Role Phone Asked, Pcp Primary Care Physician Unavailable Mirna Blackmon MD Attending Clinician Tc KEANE Attending Clinician Radha KEANE Attending Clinician Jean RN, L Attending Clinician Unavailable Mehul KEANE, Mario Attending Clinician Marcela Gallego MD Attending Clinician Sudha RN, M Attending Clinician Farhana SHELDON Attending Clinician Unavailable Vinicio HAJI Attending Clinician Ronel Queen MD Attending Clinician Ezra KEANE, Jenna Attending Clinician Amado Streeter RN, R Attending Clinician Unavailable TC Admitting Clinician Unavailable Mehul KEANE, Mario Admitting Clinician Ezra KEANE, Jenna Admitting Clinician Payers Payer Name Policy Type Policy Effective Expiration Source Number Date Date [id number] [place] CHOICE/CHOICE 00:00:00 [facility] [id number] 2020-Prese ntHMO/PPO Problems Condition Condition Condition Status Onset Resolution Last Treating Co mments Source Name Details Category Date Date Treatment Clinician Date Aortic Aortic Disease Active [place] dissection dissection 5-26 Me thodi 00:00: st 00 Allergies, Adverse Reactions, Alerts Allergy Allergy Status Severity Reaction(s) Onset Inactive Treating Comm ents Source Name Type Date Date Clinician Sulfa Propensi Active Shortness Of Ho genesis (Sulfona ty to Breath, 01-03 Methodi mide adverse Itching 00:00: st Antibiot reaction 00 ics) s to drug Social History Social Habit Start Date Stop Date Quantity Comments Source Sex Assigned At [birth year] [place] ethodist 00:00:00 00:00:00 Medications Ordered Filled Start Stop Current Ordering Indication Dosage Frequency Signature Comments Components Source Medication Medication Date Date Medication? Clinician (SIG) Name Name ergocalcife Yes 13047N Q7D Take [place] 5-19 50,000 Methodi (VITAMIN 00:00: Units by st D2) 50,000 00 mouth once unit a week. capsule Saturday Tivicay 50 Yes 50mg QD Take 50 mg [place] mg tablet 5-14 by mouth Method i 00:00: daily. st 00 lamiVUDine Yes 150mg Q.15131943 Take 150 Kwon (EPIVIR) 5-14 [id number] mg by Meth tenzin 150 MG 00:00: 3W mouth 3 st tablet 00 (three) times a week. Saturday, , Saturday, After dialysis furosemide Yes 40mg Q.5D Take 40 mg [place] (LASIX) 40 -07 by mouth 2 Met hodi mg tablet 00:00: (two) st 00 times a day. dapsone 100 Yes 100mg QD Take 100 [place] MG tablet 5-01 mg by Methodi 00:00: mouth st 00 daily. pantoprazol Yes 40mg QD Take 40 mg Kwon e 5-01 by mouth Methodi (PROTONIX) 00:00: daily. st 40 MG EC 00 tablet sevelamer Yes 800mg Q.64179468 Take 800 Kwon carbonate 5- [id number] mg by Met mercedes (RENVELA) 00:00: 3D mouth [address] st 0.8 gram 00 (three) powder in times a packet day with meals. amLODIPine Yes 10mg QD Take 10 mg [place] (NORVASC) 4-23 by mouth Method i 10 mg 00:00: daily. st tablet 00 carvediloL Yes 6.25mg Q.5D Take 6.25 Doyle (COREG) 4-23 mg by Methodi 6.25 MG 00:00: mouth 2 st tablet 00 (two) times a day with meals. Vital Signs Vital Name Observation Time Observation Value Comments Source Systolic blood 2021-01-05 18:25:00 130 mm[Hg] Lia barbosa [facility] pressure Diastolic blood 2021-01-05 18:25:00 53 mm[Hg] Austin Cardona pressure Heart rate 2021-01-05 18:00:00 60 /min Doyle Cardona Respiratory rate 2021-01-05 18:00:00 14 /min Christopher Cardona Oxygen saturation in 2021-01-05 18:00:00 95 /min Doyle Cardona Arterial blood by Pulse oximetry Body temperature 2021-01-05 12:00:00 36.56 [place] Christopher Cardona Body weight 2021-01-04 06:45:00 60 kg Doyle Cardona BMI 2021-01-04 06:45:00 23.43 kg/m2 Doyle Cardona Body height 2021-01-03 22:57:00 160 cm Doyle Cardona Procedures Procedure Date / Time Performing Clinician Source Performed XR CHEST 1 VW PORTABLE 2021-01-05 17:36:12 Alberto Woodward Carter POC GLUCOSE 2021-01-05 16:24:00 Hari Sanches US THORACENTESIS WITH 2021-01-05 14:45:00 Arthur Storm [facility] IMAGING ALBUMIN, MISC FLUID 2021-01-05 14:30:00 Hari Sanches AMYLASE LEVEL, MISC FLUID 2021-01-05 14:30:00 Hari Sanches Go hurtado [facility] LDH, MISC FLUID 2021-01-05 14:30:00 Hari Sanches Meth odist GLUCOSE LEVEL, MISC FLUID 2021-01-05 14:30:00 Hari Sanches genesis [facility] PROTEIN, MISC FLUID 2021-01-05 14:30:00 Hari Sanches [facility] PH, MISC FLUID 2021-01-05 14:30:00 Hari Sanches Meth odist TRIGLYCERIDES, MISC FLUID 2021-01-05 14:30:00 Radha, Hari Stiles denzel [facility] CELL COUNT AND 2021-01-05 14:30:00 Hari Sanches Pricilla odist DIFFERENTIAL, BODY FLUID AEROBIC CULTURE 2021-01-05 14:30:00 Hari Sanches odist ANAEROBIC CULTURE 2021-01-05 14:30:00 Hari Sanches Me thodist GRAM STAIN 2021-01-05 14:30:00 Hari Sanches Meth odist CYTOLOGY 2021-01-05 14:01:00 Hari Sanches Meth odist (NON-GYNECOLOGICAL) REQUEST POC GLUCOSE 2021-01-05 11:32:00 Hari Sanches Meth odist POC GLUCOSE 2021-01-05 08:18:00 Hari Sanches Pricilla odist XR CHEST 1 VW PORTABLE 2021-01-05 06:12:03 Winston Franco ECG 12-LEAD 2021-01-05 06:05:46 Winston Franco MAGNESIUM LEVEL 2021-01-05 02:09:00 Callie Woodson PHOSPHORUS LEVEL 2021-01-05 02:09:00 Callie Woodson HC COMPLETE BLD COUNT 2021-01-05 02:09:00 Winston Franco W/AUTO DIFF ARTERIAL BLOOD GAS 2021-01-05 02:09:00 Winston Franco ethodi BASIC METABOLIC PANEL 2021-01-05 02:09:00 Franco, Winston [place] [facility] IONIZED CALCIUM, ARTERIAL 2021-01-05 02:09:00 SalvadorWinston [place] [facility] ESTIMATED GFR 2021-01-05 02:09:00 FrancoWinston Kwon Meth odist POC GLUCOSE 2021-01-04 23:40:00 LdHari salmeron Meth odist POC GLUCOSE 2021-01-04 19:45:00 LdHari salmeron Meth odist POC GLUCOSE 2021-01-04 16:49:00 LdHari salmeron Meth odist US CHEST 2021-01-04 15:15:00 Arthur Storm Met hodist BLOOD CULTURE, AEROBIC & 2021-01-04 13:28:00 Manjeet Bejarano ANAEROBIC BLOOD CULTURE, AEROBIC & 2021-01-04 13:25:00 Manjeet Bejarano [facility] ANAEROBIC TB IN-TUBE QUANTIFERON 2021-01-04 13:24:00 Manjeet Bejarano PLUS HEMOGLOBIN & HEMATOCRIT 2021-01-04 13:24:00 Nura Santacruz [facility] Dhansukhlal POC GLUCOSE 2021-01-04 11:48:00 Hari Sanches HEPATITIS B SURFACE 2021-01-04 09:49:00 Jonas Purvis ANTIGEN COCCIDIOIDES ANTIBODY, 2021-01-04 09:49:00 Manjeet Bejarano IGG/IGM BY SABRINA TOXOPLASMA GONDII 2021-01-04 09:49:00 Manjeet Bejarano M ethodist ANTIBODY, IGG SYPHILIS TOTAL ANTIBODY 2021-01-04 09:49:00 Manjeet Bejarano HEPATITIS B SURFACE AG 2021-01-04 09:49:00 Hari Sanches on [facility] CONFIRMATION CRYPTOCOCCAL ANTIGEN 2021-01-04 09:49:00 Manjeet Bejarano n [facility] SCREEN HEMOGLOBIN & HEMATOCRIT 2021-01-04 08:34:00 Nura Santacruzu ston [facility] Dh[place]al POC GLUCOSE 2021-01-04 07:49:00 Rdaha Sydneehya Kwon Meth odist TTE COMPLETE, WO 2021-01-04 07:15:00 Winston Franco Met hodist CONTRAST, W DOPPLER (10151) HEMODIALYSIS 2021-01-04 06:37:58 Jonas Purvis Doyle Meth odist ARTERIAL BLOOD GAS 2021-01-04 06:15:00 Winston Franco M ethodist FL INSERT 2021-01-04 06:10:39 Ashutosh Caicedo on [facility] CATH,ART,PERCUT,SHORTTERM POC GLUCOSE 2021-01-04 06:07:00 Hari Sanches Doyle Meth odist CD 4 SUBSET 2021-01-04 03:49:00 Wade Montez Met hodist MAGNESIUM LEVEL 2021-01-04 03:42:00 Callie Woodson PHOSPHORUS LEVEL 2021-01-04 03:42:00 Callie Woodson n [facility] ESTIMATED GFR 2021-01-04 03:42:00 Ian Blackmon Ms [facility]odist TROPONIN 2021-01-04 03:42:00 Ian Blackmon Ms [facility]odist CBC HEMOGRAM 2021-01-04 03:42:00 Callie Woodson BASIC METABOLIC PANEL 2021-01-04 03:42:00 Callie Woodson [facility] CT ANGIOGRAM CHEST 2021-01-04 00:30:33 Ian Blackmon ABDOMEN PELVIS W AND OR WITHOUT CONTRAST XR CHEST 1 VW PORTABLE 2021-01-03 23:58:00 Ian Blackmon RESPIRATORY PATHOGEN 2021-01-03 23:55:00 Ian Blackmon [facility] PANEL WITH COVID-19 HC COMPLETE BLD COUNT 2021-01-03 23:54:00 Ian Blackmon [facility] W/AUTO DIFF PROTHROMBIN TIME WITH INR 2021-01-03 23:54:00 Ian Blackmon PARTIAL THROMBOPLASTIN 2021-01-03 23:54:00 Ian Balckmon [facility] TIME (PTT) TYPE AND SCREEN 2021-01-03 23:54:00 Ian Blackmon Ms [facility]odist MAGNESIUM LEVEL 2021-01-03 23:54:00 Ian Blackmon Ms [facility] PHOSPHORUS LEVEL 2021-01-03 23:54:00 Ian Blackmon M ethodist LACTIC ACID LEVEL, SEPSIS 2021-01-03 23:54:00 Ian Blackmon [facility] - NOW AND REPEAT 2X EVERY 3 HOURS CREATINE KINASE, TOTAL 2021-01-03 23:54:00 Ian Blackmon Gianfranco ston [facility] (CPK) TROPONIN 2021-01-03 23:54:00 Ian Blackmon [facility] B NATRIURETIC PEPTIDE 2021-01-03 23:54:00 Ian Blackmon Christopher ton [facility] RETICULOCYTE COUNT 2021-01-03 23:54:00 Ina Blackmon [facility] PERIPHERAL SMEAR 2021-01-03 23:54:00 Ian Blackmon ethodist DIRECT NEELAM' (GINGER) 2021-01-03 23:54:00 Ian Blackmon [place] [facility] FERRITIN LEVEL 2021-01-03 23:54:00 Ian Blackmon Ms [facility] HAPTOGLOBIN 2021-01-03 23:54:00 Ian Blackmon [facility] LDH 2021-01-03 23:54:00 Ian Blackmon Ms [facility] TOTAL IRON BINDING 2021-01-03 23:54:00 Ian Blackmon Kwon [facility] CAPACITY VITAMIN B12 LEVEL 2021-01-03 23:54:00 Ian Blackmon Kwon [facility] THYROID STIMULATING 2021-01-03 23:54:00 Ian Blackmon Christopherto n [facility] HORMONE COMPREHENSIVE METABOLIC 2021-01-03 23:54:00 Ian Blackmon [place] [facility] PANEL ERYTHROPOIETIN 2021-01-03 23:54:00 Ian Blackmon Ms [facility]od[facility] FOLATE LEVEL 2021-01-03 23:54:00 Ian Blackmon Ms [facility] ESTIMATED GFR 2021-01-03 23:54:00 Ian Blackmon [facility] ANTIBODY IDENTIFICATION 2021-01-03 23:54:00 Ian Blackmon Ho genesis [facility] LEB ANTIGEN PATIENT 2021-01-03 23:54:00 Ian Blackmonto n [facility] TYPING KAYLIE ANTIGEN PATIENT 2021-01-03 23:54:00 Ian Blackmonto n [facility] TYPING ECG 12-LEAD 2021-01-03 23:16:35 Ian Blackmon Ms [facility]od[facility] Plan of Care Planned Activity Planned Date Details Comments Source Future Scheduled 2024-01-06 Screening for [facility] thodist Test 00:00:00 malignant neoplasm of cervix (procedure) [code = 781736862] Future Scheduled 2021-03-12 INFLUENZA VACCINE [place] [facility] Test 00:00:00 [code = INFLUENZA VACCINE] Future Scheduled 2018 BREAST CANCER [facility] thodist Test 00:00:00 SCREENING [code = BREAST CANCER SCREENING] Future Scheduled 2018 COLONOSCOPY SCREENING [place] [facility] Test 00:00:00 [code = COLONOSCOPY SCREENING] Future Scheduled 2018 SHINGLES VACCINES [place] [facility] Test 00:00:00 (#1) [code = SHINGLES VACCINES (#1)] Future Scheduled 1986 Hepatitis C screening [place] [facility] Test 00:00:00 (procedure) [code = 362173959] Future Scheduled 1980 COVID-19 VACCINE (1) Gianfranco ston [facility] Test 00:00:00 [code = COVID-19 VACCINE (1)] Encounters Start End Encounter Admission Attending Care Care Encounter Source Date/Time Date/Time Type Type Clinicians Facility Department ID 2021-01-03 2021-01-05 Inpatient [facility] [id number] [place] 00:00:00 00:00:[address] YAHYA [address] 2021-01-04 2021-01-04 HAYDEE Ma [id number] 00:00:00 00:00:00 Management [facility] [id number] [facility] 4.2.7.2.686 [id number] 2020-12-30 2021-01-03 [facility] Vargas Carver 1.2. [id number] [id number] 08:00:00 09:35:00 Encounter Haven Gallego 350 .1.13.10 [facility] 4.2.7.2.686 [id number] 2020-12-28 2020-12-28 Transition Myra Haley [id number] 00:00:00 00:00:00 of Care Catherine Reyes [id number] [place] 4.2.7.2.686 [id number] 2020-12-28 2020-12-28 Case Farhana, [facility] 1.2.177.177 [id number] 00:00:00 00:00:00 Management Demi Y HEALTH [id number] CLINICS 4.2.7.2.686 [id number] 2020-12-28 2020-12-28 Case Jean, [facility] [id number] 00:00:00 00:00:00 Management Kane L Y HEALTH [id number] [facility] 4.2.7.2.686 [id number] 2020-12-25 2020-12-27 Hospital Vinicio Sameeraryan Camacho 1.2.840. 114 [id number] 21:38:00 23:05:00 Encounter Melissa Queen 350.1.13.10 [facility] 4.2.7.2.686 [id number] 2020-12-22 2020-12-22 Case Del Ferdinand, [facility] [id number] 00:00:00 00:00:00 Management Kyra R Y HEALTH 350.1.13.10 CLINICS 4.2.7.2.686 [id number] 2020-12-22 2020-12-22 Case Jean, [facility] [id number] 00:00:00 00:00:00 Management Kane L Y HE[facility] 350.1.13.10 CLINICS 4.2.7.2.686 [id number] Results Test Description Test Time Test Comments Results Result Comments Source Anaerobic culture 2021-01-09 08:51:34 Test Item Value Reference Range Interpretation Comme nts Anaerobic culture No anaerobic organisms Specimen InformationSpecimen isolate (test code = isolated. Source: Pleural fluidSpecimen 552) Site: [facility] MethodistAerobic [id number] 19:55:18 Test Item Value Reference Range Interpretation Comments Aerobic culture No growth Specimen isolate (test after 3 days. InformationSp ecimen code = 498) Source: Pleural fluidSpecimen S ite: [facility] MethodistCytology (non-gynecological) [id number] 17:21:44 Test Item Value Reference Range Interpretation Comments Case number (test [id number] code = [id number]) Cytology See link below for PDF (non-gynecological) Lab Report report (test code = 1178) Result status (test This is Supplemental code = 7943941) Report for [id number] [place] MethodistUS Thoracentesis With [id number] 09:31:32Hm Interface, Radiology Results 01/06/2021 9:34 AM CDT PROCEDURE:Diagnostic/therapeutic left sided thoracentesisPerforming Clinician: Alberto Woodward PA-C Attending Physician:Dr. Stewartts:Dr. Treadwell (review imaging) Pre Procedure Diagnosis:pleural effusionsPost Procedure Diagnosis:pleural effusionsIndication:Pleural effusionComplications:No immediate post procedure complications.IMPRESSION:1.Technically successful ultrasound-guided left sided diagnostic/therapeutic thoracentesis.2.There is a moderate simple left pleural effusionPLAN:A post procedure chest x-ray is pending. PROCEDURE SUMMARY:Access of the left pleural space using ultrasound guidancePROCEDURE DETAILS:Pre- procedure:Comparison studies: NoneWritten and informed consent for the procedure and monitored conscious sedation was obtained from the patient.Prophylactic antibiotics:NonePreparation: The left posterior chest wall was prepared and draped using all elements of maximalsterile barrier technique including sterile gloves, sterile gown, catheter, mask, large sterile sheet, sterile ultrasound probe cover, hand hygiene and cutaneous antisepsis using chlorhexidine.Anesthesi a/Sedation:Level of anesthesia: None (lidocaine only)Medications used: 1% lidocaineAnesthesia administration: NoneDuration of anesthesia/sedation: N/AAccess:Local anesthesia was administered. The left pleural space was evaluated with preprocedure ultrasound. Real-time ultrasound was used to visualize needle entry into the pleural space. Access technique:One-step catheterThoracentesis:Fluid Color: YellowVolume Removed: 500 mLFluid Analysis: The fluid was sent for laboratory tests ordered by the primary teamClosure:The One-Step catheter was removed and hemostasis was achieved with manual compression.A sterile dressing was applied.Additional details:Estimated blood loss: Less than [address] [facility]-8RH8655EKONnencuh MethodistGram [id number] 21:31:43 Test Item Value Reference Range Interpretation Comments Gram stain No WBC's or Specimen isolate (test organisms seen. Information Specimen code = 1469) Source: Pleural fluidSpecimen S ite: Left [place] MethodistCell count and differential, body [id number] 21:26:42 Test Item Value Reference Range Interpretation Comments Misc fluid type Pleural (test code = 17504-8) Color, fluid (test Yellow code = 6824-7) Appearance, fluid Slightly hazy (test code = 9335-1) RBC, fluid (test SEE COMMENT See_Comment 2+ (500 - 1 0,000 code = 85626-9) RBC/CMM) [Au tomated message] The sy stem which generated this result transmit kristina reference range : /CMM. The refer ence range was not u sed to interpret th is result as normal/abnormal . Nucleated cells, 1288 See_Comment [Automated message] fluid (test code = The syste m which 11060-3) generated this result transmit kristina reference range : /CMM. The refer ence range was not u sed to interpret th is result as normal/abnormal . Fluid mononuclear See Diff cell (test code = 1407) Neutrophils, fluid 6 % (test code = 48729-4) Lymphocytes, fluid 24 % (test code = 53334-3) Eosinophils, fluid 1 % (test code = 09757-1) Mesothelial cells, 3 % fluid (test code = 42160-9) Macrophages, fluid 66 % (test code = 71763-3) BAO (test code = pleural fluid BAO) Doyle De JesusistpH, [facility] [id number] 21:04:11 Test Item Value Reference Range Interpretation Comments Fluid type (test Pleural code = 81570-0) pH, fluid (test 8.00 Reference ra nges are code = 2748-2) not establish ed for Miscellanous sp ecimens. BAO (test code = pleural fluid BAO) Doyle MethodistAlbumin, [facility] [id number] 17:57:29 Test Item Value Reference Range Interpretation Comments Fluid type Pleural (test code = 74680-8) Albumin, fluid 1.2 g/dL The reference interval(s) (test code = and other metho d 1747-5) performance specifications have not been establishe d for this body fluid. The test results must be integrated into the clinical contex t for interpretation. This test has been modifi ed from the manufacture rs instructions. The performance characteristics were determined by Solange Cardona [facility] geovany in a manner consiste nt with CLIA requiremedstar washington [facility] center ts. This test has not be en cleared or approved by the U.S. Food and Drug Administration. BAO (test code pleural fluid = BAO) Doyle MethodistAmylase level, [facility] [id number] 17:57:29 Test Item Value Reference Range Interpretation Comments Fluid type Pleural (test code = 79948-1) Amylase, fluid 69 U/L The reference interval(s) (test code = and other metho d 1795-4) performance specifications have not been establishe d for this body fluid. The test results must be integrated into the clinical contex t for interpretation. This test has been modifi ed from the [employer] rs instructions. The performance characteristics were determined by Solange armenta in a manner consiste nt with CLIA requiremen ts. This test has not be en cleared or approved by the U.S. Food and Drug Administration. BAO (test code pleural fluid = BAO) Doyle De JesusveronikaGlucose level, [facility] [id number] 17:57:29 Test Item Value Reference Range Interpretation Comments Fluid type Pleural (test code = 35407-2) Glucose, fluid 151 mg/dL The reference interval(s) (test code = and other metho d 2344-0) performance specifications have not been establishe d for this body fluid. The test results must be integrated into the clinical contex t for interpretation. This test has been modifi ed from the [employer] rs instructions. The performance characteristics were determined by Solange armenta in a manner consiste nt with CLIA requiremen ts. This test has not be en cleared or approved by the U.S. Food and Drug Administration. BAO (test code pleural fluid = BAO) Doyle De JesusveronikaLDH, [facility] [id number] 17:57:29 Test Item Value Reference Range Interpretation Comments Fluid type Pleural (test code = 90004-7) LDH, fluid 188 U/L The reference i nterval(s) (test code = and other metho d 46595-1) performance specifications have not been establishe d for this body fluid. The test results must be integrated into the clinical contex t for interpretation. This test has been modifi ed from the [employer] rs instructions. The performance characteristics were determined by Solange armenta in a manner consiste nt with CLIA requiremen ts. This test has not be en cleared or approved by the U.S. Food and Drug Administration. BAO (test code pleural fluid = BAO) Doyle Mena, [facility] [id number] 17:57:29 Test Item Value Reference Range Interpretation Comments Fluid type Pleural (test code = 41901-4) Protein, fluid 2.7 g/dL The reference interval(s) (test code = and other metho d 2881-1) performance specifications have not been establishe d for this body fluid. The test results must be integrated into the clinical contex t for interpretation. This test has been modifi ed from the manufacture rs instructions. The performance characteristics were determined by Solange armenta in a manner consiste nt with CLIA requiremen ts. This test has not be en cleared or approved by the U.S. Food and Drug Administration. BAO (test code pleural fluid = BAO) Doyle CardonaTriglycerides, misc [id number] 17:57:29 Test Item Value Reference Range Interpretation Comments Fluid type Pleural (test code = 84806-5) Triglyceride, 24 mg/dL The reference interval(s) fluid (test and other metho d code = 73978-6) performance specifications have not been establishe d for this body fluid. The test results must be integrated into the clinical contex t for interpretation. This test has been modifi ed from the manufacture rs instructions. The performance characteristics were determined by Solange armenta in a manner consiste nt with CLIA requiremen ts. This test has not be en cleared or approved by the U.S. Food and Drug Administration. BAO (test code pleural fluid = BAO) Doyle CardonaXR Chest 1 Vw [id number] 17:39:13Hm Interface, Radiology Results 01/05/2021 5:42 PM CDT EXAMINATION: XR CHEST 1 VW PORTABLECLINICAL HISTORY: post thoracentesis IMPRESSION:Film obtained after left thoracentesis demonstrates decrease in size of left pleural effusion. 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 Interpretation (test Abnormal code = 57366-7) Doyle CardonaECG 12 [id number] 10:21:27 Test Item Value Reference Range Interpretation Comments Ventricular rate (test 65 code = 253) Atrial rate (test code 65 = 255) FL interval (test code 136 = 266) QRSD interval (test 84 code = 260) QT interval (test code 440 = 264) QTC interval (test code 457 = 265) P axis 1 (test code = 52 267) QRS axis 1 (test code = 8 268) T wave axis (test code 90 = 270) EKG impression (test Normal sinus code = 273) rhythm-Possible Left atrial enlargement-Possible Anterior infarct (cited on or before 03-JAN-2021)-Abnormal ECG-In automated comparison with ECG of 03-JAN-2021 23:16,-T wave inversion now evident in Anterior leads- [place] MethodistUS [id number] 15:51:18Hm Interface, Radiology Results Incoming 01/04/2021 3:54 PM CDT EXAMINATION: US CHESTCLINICAL HISTORY: Abnormal xray - pleural effusionCOMPARISON:Most recent priorIMPRESSION:Right Chest: Right pleural effusion with estimated volume of 363cc.Left Chest: Left pleural effusion with estimated volume of 413 cc.[facility] Complete, (w Contrast, Strain and 3D if needed)2021-01-04 08:31:00Interface, Radiology Results In - 01/04/2021 8:32 AM CDT Echocardiography Report [address] [place] [address] Pat.Name: CARSON LEES Pat.ID: [id number] .Date: 01/04/2021 Refer.MD: HARI SANCHES MD. Exam Time: 6:41:00 AM Study Type:Routine Echo Height: 63in Weight: 110lb BSA: 1.5 m2 Age: 12 1970,50Y Sex: FEMALE BP: 113/60 HR: 64 bpm Sonogrphr: Lor Canchola RCS, RVT Pat. Stat.:Inpatient Room: WT919 CPT - 4: 22098, 44158, 83134 Study Status:Final Echo Event ID:[id number] Order ID: [id number] Reason for Study:Back pain, aortic dissectionProcedures: 2D Echo, 2D Echo, Colorflow Doppler, Portable, Stat,StrainRace: C SUMMARY: LV size is normal.There is mild concentric LV hypertrophy.LV EF is normal.Insufficient TR jet to estimate PA systolic pressure. FINDINGS: LV: LV size is normal. There is mild concentric LV hypertrophy. Normal average LV global longitudinal strain at -19.5%. LV EF is normal. Overall wall motion isnormal. Estimated EF is 55-59%.RV: RV size is normal. RV systolic function is normal.LA: LA volume is mildly enlarged.RA: RA volume is normal. A catheter is seen.AO: Aortic root diameter is normal. there apears to be a dissection flap in the abdominal aorta.JODI: Trace posterolateral pericardial effusion.PLE: Pleural effusion is present.AV: No structural AV abnormalities noted. A trace of aortic regurgitation. MV: No structural MV abnormalities noted. Mild mitral regurgitation. PV: Pulmonic valve not well seen. Atrace of pulmonic regurgitation. TV: No structural TV abnormalities noted. Mild tricuspid regurgitation Rivera: Diastolic dysfunction Grade II (Moderate): Impaired rel axation with elevated LV filling pressures.Other: Insufficient TR jet to estimate PA systolic pres sure. MEASUREMENTS: 2DParasternal Long [place] Ao Rtd 3.8 cm Index 2.5 cm/m2 LVPWd 1.2 cm IVSd 1.3 cm LA Ds 4.3 cm LVIDd 4.7 cm Index 3.1 cm/m2 LVOT 2 cm LA Sng Plane LA Area 20 cm2 (8.8-23.4) LA Vol 55 ml Index 37 ml/m2 LA LngAx 5.9 cm LVOT LVOT Area 6.1 cm2 Signed 01/04/2021 08:31 Lisbeth [facility] antigen patient [id number] 06:23:00 Test Item Value Reference Range Interpretation Comments Kaylie Antigen Patient Typing (test code = NEG 2621) [facility] antigen patient [id number] 06:23:00 Test Item Value Reference Range Interpretation Comments LeB Antigen Patient Typing (test code = NEG 2642) [facility] [id number] 06:22:00 Test Item Value Reference Range Interpretation Comments Antibody ID (test POS, Anti-Kaylie Corrected result; code = 21909-1) previously r eported as NEG on 01/05/20 21 at 06:22 by [id number] his antibody usuall y does not cause red c ell damage and is notgenerally considered clin ically significant. R ed cells fortransf usion will [place] [id number]. [facility] MethodistArterial Line [id number] 06:10:39FerAshutosh madrid NP 01/04/2021 6:11 AMArterial Line Insertion Date/Time: 01/04/2021 6:10 AMPerformed by: Ashutosh Caicedo NPAuthorized by: Ashutosh Caicedo NP Consent: Consent obtained: Verbal and emergent situation Consent given by: Patient Risks discussed: Bleeding, infection, ischemia, pain and repeat procedureIndications: Indications: hemodynamic monitoring Pre-p rocedure details: Skin preparation: 2% Chlorhexidine Preparation: Patient was prepped and drapedin sterile fashion Anesthesia (see MAR for exact dosages): Anesthesia method: Local infiltration Local anesthetic: Lidocaine 1% w/o epiProcedure details: Location: R radial Balaji's test performed: yes Balaji's test abnormal: no Needle gauge: 20 G Placement technique: Seldinger Ultrasound guidance: yes Ultrasound guidance: images not saved electronically Number of attempts: 1 Transducer: waveform confirmed Post- procedure details: Post-procedure: Sterile dressing applied, sutured and wrist guard applied CMS: Normal Patient tolerance of procedure: Tolerated well, no immediate complicationsHoupeter [facility] MethodistType and [id number] 01:54:00 Test Item Value Reference Range Interpretation Comments ABO grouping (test code = 883-9) B Rh type (test code = 23230-1) POS Antibody screen (gel) (test code = POS 890-4) [facility] Neelam' (GINGER)2021-01-04 01:39:00 Test Item Value Reference Range Interpretation Comments [id number] Polyspecific (test code = NEG 2585) [facility] Angiogram Chest W Contrast Abdomen W Contrast Pelvis W [id number] 01:28:18Hm Interface, Radiology Results 01/04/2021 1:31 AM CDT EXAMINATION: CT ANGIOGRAM CHEST ABDOMEN PELVIS W AND OR WITHOUT CONTRASTCLINICAL HISTORY: 50 years Female Type B Aortic Dissection dialysis Pt- please obtaine without CreatinineTECHNIQUE: Multi-detector computed axial tomography (CAT) of the chest, abdomen, and pelvis was performed with IV iodinated contrast according to angiography protocol. 3-D volume rendered CT reconstructions of the vasculature were created on a postprocessing workstation at the acquisition scanner under concurrent supervision, archived, and interpreted. 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 Moderate left perinephric hematoma without evidence ofactive bleeding.4.Moderate left and small right pleural effusions with passive subsegmental and subsegmental atelectasis.5.A 7 mm right upper lobe solid pulmonary nodule may be followed with CT chest in 6 months. Mild upper lung predominant centrilobular and paraseptal emphysema.6.Mild splenomegaly and bilateral adrenal gland hyperplasia.7.Please see below for details and additional findings.FINDINGS:VASCULATURE: (all measurements are in cm): Elian type B thoracoabdominal aortic dissection. The dissection flap extends into the proximal right common iliac artery. There is a small amount of dense mural thrombus within the arch.Thoracic aorta is ectatic, the ascending segment measuring 3.6 cm and the descending segment 3.3 cm. There is no aneurysm.Narrowing of the true lumen in the descending thoracic segment measuring 19 x 5 mm. Fenestration of the intimal flap is also seen in the distal descending thoracic aorta.Arch great vessels, mesenteric, renal, iliac, and proximal femoral arteries are well opacified and widely patent. There is mild atheromatous disease of the bilateral internal iliac and common femoral arteries.Mesenteric and renal arteries are supplied by the true lumen. Inferior mesenteric artery supplied by the false lumen.Embolization coils are observed in segmental and distal branches of the left renal artery.CHEST:Mild cardiomegaly. Multifocal multivessel mild coronary artery calcification. No pericardial effusion.A right internal jugular dialysis catheter terminates low at the inferior cavoatrial junction. Superior vena cava is patent.Main pulmonary artery is dilated measuring 3.4 cm, a finding suggestive of but not diagnostic for pulmonary hypertension. No central fillingdefect.A mildly enlarged left lower paratracheal lymph node is likely benign and reactive. There is no suspicious thoracic adenopathy, mediastinal mass, or suspicious thyroid nodule.Moderate left and small right low-attenuation pleural effusions. Basal segments of the left lower lobe are collapsed. There is segmental and subsegmental atelectasis in the posterior base of the right lower lobe and subsegmental atelectasis in the inferior lingula.A 7 mm circumscribed solid nodule in the anterior right up per lobe can be followed with CT chest in 6 months. Mild upper lung predominant centrilobular and paraseptal emphysema.ABDOMEN:A left perinephric hematoma measures 9.3 x 6.1 x 2.6 cm. No evidence of active bleeding or infarct status- post embolization. Splenomegaly measures 13.7 x 11.8 x 4.6 cm. Liver, pancreas, and right kidney are unremarkable.Bilateral adrenal gland thickening consistent with hyperplasia.No evidence of obstruction or inflammation in the GI tract. There is a large amount of stool admixed with oral contrast in the cecum, ascending colon, and proximal transverse colon.No adenopathy. Trace ascites. No fluid collection.PELVIS:Few mildly enlarged inguinal lymph nodes are likely benign and reactive. No suspicious lymphadenopathy.No pelvic mass.Trace free fluid. No fluid collection.Urinary bladder is normal in appearance and opacified by excreted IV contrast.OTHER:Moderately severe diffuse soft tissue anasarca. No acute or suspicious osseous lesion is identified. Mild rightward curvature and degenerative changes of the lumbar spine.[facility]ist
[2021-01-10 07:34] LABS: Absolute Lymphocytes (CBC) 1.3 K/uL (0.7-4.9); Basophils % 0.5 % (0-1.3); Hematocrit 21.8 % (36.0-45.0); Lymphocytes % 18.3 % (15.3-44.8); MPV 7.6 fL (7.6-11.3); RBC Red Blood Cell Count 2.27 M/uL (3.86-4.86)
[2021-01-10 07:37] LABS: Protime INR 0.9
[2021-01-10 07:53] LABS: ALT/SGPT 16 U/L (12-78); AST/SGOT 16 U/L (15-37); Albumin 2.7 g/dL (3.4-5.0); Alkaline Phosphatase 91 U/L (45-117); Amylase 120 U/L (25-115); BUN Blood Urea Nitrogen 44 mg/dL (7-18); Bicarbonate 23 mmol/L (21-32); Bilirubin Direct 0.5 mg/dL (0-0.2); Bilirubin Total 1.6 mg/dL (0.2-1.0); CKMB Creatine Kinase MB < 1.0 ng/mL (0.3-3.6); Creatine Phosphokinase 52 U/L (26-192); Glucose Level 91 mg/dL (74-106); Lipase 297 U/L (73-393); Potassium 4.1 mmol/L (3.5-5.1); Protein, Total 7.5 g/dL (6.4-8.2); Sodium Level 136 mmol/L (136-145); Troponin (Emerg Dept Use Only) < 0.02 ng/mL (0.0-0.045)
--- NOTE | 2021-01-10 08:11 | EDPHYS ---
Physician Documentation [facility] Name: Mary Leiva Age: 50 yrs Sex: Female : 1970 Arrival Date: 01/10/2021 Time: 06:37 Bed 5 Private MD: ED Physician Eduar Vasquez HPI: 01/10 07:30 This 50 yrs old Female presents to ER via Wheelchair with complaints of tw4 Breathing Difficulty. 07:30 The patient has shortness of breath at rest. Onset: The symptoms/episode began/occurred tw4 today. Duration: The symptoms are continuous, and are unchanged since they started. The patient's shortness of breath has no apparent modifying factors. Associated signs and symptoms: The patient has no apparent associated signs or symptoms. Severity of symptoms: At their worst the symptoms were moderate in the emergency department the symptoms are unchanged. The patient has not experienced similar symptoms in the past. Historical: - Allergies: 06:54 aloe vera (rash); bb 06:54 Sulfa (Sulfonamide Antibiotics) (Anaphylaxis); bb - Home Meds: 06:54 amlodipine 10 mg tab 1 tab once daily for Hypertension [Active]; carvedilol 6.25 mg bb Oral tab 1 tab 2 times per day for Hypertension [Active]; dapsone 100 mg Oral tab 1 tab once daily [Active]; ergocalciferol (vitamin D2) 1,250 mcg Oral 1 cap once wkly [Active]; melatonin 3 mg Oral tab nightly [Active]; pantoprazole 40 mg Oral TbEC 1 tab once daily [Active]; sevelamer HCl 800 mg Oral 1 tab 3 times per day [Active]; triamcinolone acetonide 0.1 % Topical crea 2 times per day [Active]; - PMHx: 06:54 Dialysis; hiatal hernia; HIV; aortic dissection; bb - Immunization history:: Adult Immunizations up to date. - Social history:: Smoking status: unknown. ROS: 07:30 Constitutional: Negative for fever, chills, and weight loss, Eyes: Negative for injury, tw4 pain, redness, and discharge, Cardiovascular: Negative for chest pain, palpitations, and edema. 07:30 Back: Negative for injury and pain, MS/Extremity: Negative for injury and deformity, Skin: Negative for injury, rash, and discoloration. 07:30 Respiratory: Positive for shortness of breath. Exam: 07:30 Constitutional: This is a well developed, well nourished patient who is awake, alert, tw4 and in no acute distress. Head/Face: Normocephalic, atraumatic. Chest/axilla: Normal chest wall appearance and motion. Nontender with no deformity. No lesions are appreciated. Cardiovascular: Regular rate and rhythm with a normal S1 and S2. No gallops, murmurs, or rubs. Normal PMI, no JVD. No pulse deficits. Respiratory: Lungs have equal breath sounds bilaterally, clear to auscultation and percussion. No rales, rhonchi or wheezes noted. No increased work of breathing, no retractions or nasal flaring. Abdomen/GI: Soft, non-tender, with normal bowel sounds. No distension or tympany. No guarding or rebound. No evidence of tenderness throughout. MS/ Extremity: Pulses equal, no cyanosis. Neurovascular intact. Full, normal range of motion. Neuro: Awake and alert, GCS 15, oriented to person, place, time, and situation. Cranial nerves II-XII grossly intact. Motor strength 5/5 in all extremities. Sensory grossly intact. Cerebellar exam normal. Normal gait. Vital Signs: 06:49 BP 200 / 104; Pulse 88; Resp 24 S; Temp 98(O); Pulse Ox 84% on 5 lpm NC; Weight 49.9 kg bb (R); Height 5 ft. 3 in. (160.02 cm) (R); Pain 7/10; 07:30 BP 196 / 101; Pulse 80; Resp 20; Pulse Ox 92% on R/A; Pain 9/10; kg 09:30 BP 183 / 105; Pulse 73; kg 06:49 Body Mass Index 19.49 (49.90 kg, 160.02 cm) bb MDM: 08:01 Patient medically screened. fausto 08:05 Differential diagnosis: Anemia Bronchitis CHF exacerbation, Chronic Obstructive fausto Pulmonary Disease pneumonia, pulmonary edema. Antibiotic administration: Not indicated. The patient's Wells Deep Vein Thrombosis Score was calculated as follows: Total Score: 0-2 Pts- Low Risk. The patient's pulmonary embolism risk score was calculated as follows: Total Score: 0-2 points. This patient was found to be at low risk for a pulmonary embolism by using the Well's assessment criteria. Immunization status: Influenza vaccine: Data reviewed: vital signs, nurses notes, lab test result(s), EKG, radiologic studies, plain films. Data interpreted: television tube inspector: rate is 80 beats/min, rhythm is regular, Pulse oximetry: on room air is 92 %. Test interpretation: by ED physician or midlevel provider: ECG, plain radiologic studies. Counseling: I had a detailed discussion with the patient and/or guardian regarding: the historical points, exam findings, and any diagnostic results supporting the discharge/admit diagnosis, lab results, radiology results, the need for further work-up and treatment in the hospital. 01/10 06:57 Order name: Amylase, Serum tw4 01/10 06:57 Order name: Basic Metabolic Panel tw4 01/10 06:57 Order name: Blood Culture Adult (2) tw4 01/10 06:57 Order name: CBC with Diff tw4 01/10 06:57 Order name: Ckmb tw4 01/10 06:57 Order name: CPK tw4 01/10 06:57 Order name: Lactate tw4 01/10 06:57 Order name: LFT's; Complete Time: 08:01 tw4 01/10 06:57 Order name: Lipase; Complete Time: 08:01 tw4 01/10 06:57 Order name: Procalcitonin; Complete Time: 19:34 tw4 01/10 06:57 Order name: Protime (+inr); Complete Time: 08:01 tw4 01/10 06:57 Order name: Ptt, Activated; Complete Time: 08:01 tw4 01/10 06:57 Order name: Troponin (emerg Dept Use Only); Complete Time: 08:01 tw4 01/10 06:57 Order name: Urine Microscopic Only; Complete Time: 19:34 tw4 01/10 06:58 Order name: Amylase; Complete Time: 08:01 EDMS 01/10 06:58 Order name: Basic Metabolic Panel; Complete Time: 08:01 EDMS 01/10 06:58 Order name: Blood Culture EDMS 01/10 06:58 Order name: CBC with Automated Diff; Complete Time: 08:01 EDMS 01/10 06:58 Order name: CKMB Creatine Kinase MB; Complete Time: 08:01 EDMS 01/10 06:58 Order name: Creatine Phosphokinase; Complete Time: 08:01 EDMS 01/10 06:58 Order name: Lactate; Complete Time: 08:01 EDMS 01/10 07:49 Order name: Glucose, Ancillary Testing; Complete Time: 08:01 EDMS 01/10 08:06 Order name: Type And Screen; Complete Time: 19:34 fausto 01/10 08:48 Order name: Urine Dipstick-Ancillary; Complete Time: 19:34 EDMS 01/10 08:49 Order name: Urine --Ancillary (enter results); Complete Time: 19:34 em1 01/10 09:34 Order name: Urine Culture EDMS 01/10 10:39 Order name: NT PRO-BNP; Complete Time: 19:34 EDMS 01/10 10:39 Order name: Troponin I; Complete Time: 19:34 EDMS 01/10 10:39 Order name: Troponin I EDMS 01/10 10:52 Order name: COVID-19 : Document "Date of Symptom Onset" if Symptomatic. em1 01/10 06:57 Order name: Chest Single View XRAY; Complete Time: 19:34 tw4 01/10 06:57 Order name: Accucheck; Complete Time: 07:31 tw4 01/10 06:57 Order name: Cardiac monitoring; Complete Time: 07:10 tw4 01/10 06:57 Order name: EKG - Nurse/Tech; Complete Time: 07:10 tw4 01/10 06:57 Order name: IV Saline Lock - Large Bore; Complete Time: 07:10 tw4 01/10 06:57 Order name: Labs collected and sent; Complete Time: 07:32 tw4 01/10 06:57 Order name: O2 Per Protocol; Complete Time: 07:10 tw4 01/10 06:57 Order name: O2 Sat Monitoring; Complete Time: 07:10 tw4 01/10 10:39 Order name: CONS Physician Consult EDNE 01/10 10:39 Order name: Echo with Doppler EDMS 01/10 11:15 Order name: CORONAVIRUS EDMS 01/10 12:16 Order name: SARS-COV-2 RT PCR; Complete Time: 19:34 EDMS 01/10 19:57 Order name: Chest Single View XRAY [facility] 01/10 20:20 Order name: RAD EDNE 01/10 20:39 Order name: Glucose, Ancillary Testing EDMS Administered Medications: 07:33 Not Given (Physician Discretion): NS 0.9% (30 ml/kg) 30 ml/kg IV at bolus once; Sepsis tw4 Protocol 08:48 Drug: Lopressor (metoprolol TARTRATE)) 25 mg Route: PO; kg 11:22 Follow up: Response: No adverse reaction; Blood pressure is unchanged kg 08:49 Drug: Lopressor (metoprolol) 2.5 mg Route: IVP; Site: right forearm; kg 09:30 Follow up: BP 183 / 105; Pulse 73 bpm; Response: No adverse reaction; Blood pressure is kg unchanged 09:23 Drug: Lopressor (metoprolol) 2.5 mg Route: IVP; Site: right forearm; kg 09:30 Follow up: Response: No adverse reaction; Blood pressure is unchanged kg 19:46 Drug: EPINEPHrine 0.1mg/mL 1:10,000 1 mg {Note: adminsitered via dialysis catheter .} jb4 Route: IVP; Site: Other; 19:48 Drug: Sodium Bicarbonate 1 amp Route: IVP; Site: right forearm; jb4 19:48 Drug: Calcium Chloride 1 grams Route: IVP; Site: right forearm; jb4 19:49 Drug: EPINEPHrine 0.1mg/mL 1:10,000 1 mg {Note: Adminstered via dialysis catheter.} jb4 Route: IVP; Site: Other; 19:52 Drug: EPINEPHrine 0.1mg/mL 1:10,000 1 mg {Note: Adminstered via dialysis catheter.} jb4 Route: IVP; Site: Other; 19:55 Drug: EPINEPHrine 0.1mg/mL 1:10,000 1 mg Route: IVP; Site: right forearm; jb4 19:58 Drug: EPINEPHrine 0.1mg/mL 1:10,000 1 mg Route: IVP; Site: right forearm; jb4 20:16 Drug: EPINEPHrine 0.1mg/mL 1:10,000 1 mg Route: IVP; Site: right forearm; jb4 20:19 Drug: Sodium Bicarbonate 1 amp Route: IVP; Site: right forearm; jb4 20:22 Drug: D50W 50 ml Route: IVP; Site: right forearm; jb4 Disposition: 01/10/21 08:10 Hospitalization ordered by Manuel Culp for Inpatient Admission. Preliminary diagnosis are Dyspnea, Unspecified combined systolic (congestive) and diastolic (congestive) heart failure, Anemia, unspecified, End stage renal disease - on HD, Hypoxemia. - Bed requested for [facility] ER HOLD. - Status is Inpatient Admission. mw2 - Condition is Fair. - Problem is new. - Symptoms have improved. Signatures: Dispatcher [employer] EDMS Eduar Vasquez MD MD cha Mickail, Joel, PA PA jmm Ballard, Brenda, RN RN bb Martinez, Eric em1 Marcus Haji RN RN jb4 Pdero Donaldson MD MD tw4 [place], Gavi mw2 Malinda Dang kg Corrections: (The following items were deleted from the chart) 14:18 08:10 Hospitalization Ordered by Manuel Culp MD for Inpatient Admission. Preliminary em1 diagnosis is Dyspnea; Unspecified combined systolic (congestive) and diastolic (congestive) heart failure; Anemia, unspecified; End stage renal disease - on HD; Hypoxemia. Bed requested for Telemetry/MedSurg (Inpatient). Status is Inpatient Admission. Condition is Fair. Problem is new. Symptoms have improved. [facility] 19:46 14:18 01/10/2021 08:10 Hospitalization Ordered by Manuel Culp MD for Inpatient mw2 Admission. Preliminary diagnosis is Dyspnea; Unspecified combined systolic (congestive) and diastolic (congestive) heart failure; Anemia, unspecified; End stage renal disease - on HD; Hypoxemia. Bed requested for Telemetry/MedSurg (Inpatient). Status is Inpatient Admission. Condition is Fair. Problem is new. Symptoms have improved. em1 21:45 19:46 01/10/2021 08:10 Hospitalization Ordered by Manuel Culp MD for Inpatient mw2 Admission. Preliminary diagnosis is Dyspnea; Unspecified combined systolic (congestive) and diastolic (congestive) heart failure; Anemia, unspecified; End stage renal disease - on HD; Hypoxemia. Bed requested for [facility] ER HOLD. Status is Inpatient Admission. Condition is Fair. Problem is new. Symptoms have improved. mw2
--- NOTE | 2021-01-10 08:11 | ER ---
Nurse's Notes [facility] Name: Mary Leiva Age: 50 yrs Sex: Female : 1970 Arrival Date: 01/10/2021 Time: 06:37 Bed 5 Private MD: Diagnosis: Dyspnea;Unspecified combined systolic (congestive) and diastolic (congestive) heart failure;Anemia, unspecified;End stage renal disease-on HD;Hypoxemia Presentation: 01/10 06:49 Chief complaint: Patient states: pt has SOB, difficulty breathing since yesterday pt bb got out of the hospital last week for aortic dissection. Coronavirus screen: shortness of breath, Client presents with at least one sign or symptom that may indicate coronavirus-19. Standard/surgical mask placed on the client. Ebola Screen: No symptoms or risks identified at this time. Initial Sepsis Screen: Does the patient meet any 2 criteria? RR > 20 per min. Yes Does the patient have a suspected source of infection? Yes: Other: difficulty breathing. Risk Assessment: Do you want to hurt yourself or someone else? Patient reports no desire to harm self or others. Onset of symptoms was January 09, 2021. 06:49 Method Of Arrival: Wheelchair bb 06:49 Acuity: ADRIAN 2 bb Historical: - Allergies: 06:54 aloe vera (rash); bb 06:54 Sulfa (Sulfonamide Antibiotics) (Anaphylaxis); bb - Home Meds: 06:54 amlodipine 10 mg tab 1 tab once daily for Hypertension [Active]; carvedilol 6.25 mg bb Oral tab 1 tab 2 times per day for Hypertension [Active]; dapsone 100 mg Oral tab 1 tab once daily [Active]; ergocalciferol (vitamin D2) 1,250 mcg Oral 1 cap once wkly [Active]; melatonin 3 mg Oral tab nightly [Active]; pantoprazole 40 mg Oral TbEC 1 tab once daily [Active]; sevelamer HCl 800 mg Oral 1 tab 3 times per day [Active]; triamcinolone acetonide 0.1 % Topical crea 2 times per day [Active]; - PMHx: 06:54 Dialysis; hiatal hernia; HIV; aortic dissection; bb - Immunization history:: Adult Immunizations up to date. - Social history:: Smoking status: unknown. Assessment: 07:05 General: Appears distressed, Behavior is cooperative, appropriate for age, anxious. ad5 Pain: Denies pain. Cardiovascular: Heart tones S1 S2 present Capillary refill is sluggish Patient's skin is warm and dry. Rhythm is regular. Respiratory: Airway is patent Trachea midline Respiratory effort is even, labored, Respiratory pattern is regular, symmetrical, tachypnea Breath sounds are clear in right upper lobe, left upper lobe, left posterior upper lobe and right posterior upper lobe Breath sounds with crackles in right posterior middle lobe and right posterior lower lobe Breath sounds are diminished in left posterior lower lobe. GI: No deficits noted. No signs and/or symptoms were reported involving the gastrointestinal system. : No deficits noted. No signs and/or symptoms were reported regarding the genitourinary system. EENT: No deficits noted. No signs and/or symptoms were reported regarding the EENT system. Derm: No deficits noted. Skin is pink, warm \T\ dry. Musculoskeletal: No deficits noted. No signs and/or symptoms reported regarding the musculoskeletal system. Vital Signs: 06:49 BP 200 / 104; Pulse 88; Resp 24 S; Temp 98(O); Pulse Ox 84% on 5 lpm NC; Weight 49.9 kg bb (R); Height 5 ft. 3 in. (160.02 cm) (R); Pain 7/10; 07:30 BP 196 / 101; Pulse 80; Resp 20; Pulse Ox 92% on R/A; Pain 9/10; kg 09:30 BP 183 / 105; Pulse 73; kg 06:49 Body Mass Index 19.49 (49.90 kg, 160.02 cm) bb ED Course: 06:37 Patient arrived in ED. es 06:52 Triage completed. bb 06:54 Arm band placed on Patient placed in an exam room, on a stretcher, on oxygen, on bb pvc monitor, on pulse oximetry. 07:05 Inserted saline lock: 20 gauge in right forearm, using aseptic technique. Blood ad5 collected. 07:09 Malinda Dang is Primary Nurse. kg 07:29 Pedro Donaldson MD is Attending Physician. tw4 07:31 Amylase, Serum Sent. kg 07:31 Basic Metabolic Panel Sent. kg 07:31 Blood Culture Adult (2) Sent. kg 07:31 CBC with Diff Sent. kg 07:31 Ckmb Sent. kg 07:31 CPK Sent. kg 07:31 Lactate Sent. kg 07:59 Chest Single View XRAY In Process Unspecified. EDMS 08:00 Attending Physician role handed off by Pedro Donaldson MD [facility] 08:00 Eduar Vasquez MD is Attending Physician. fausto 08:07 Manuel Culp MD is Hospitalizing Provider. fausto 11:20 CORONAVIRUS Sent. kg Administered Medications: 07:33 Not Given (Physician Discretion): NS 0.9% (30 ml/kg) 30 ml/kg IV at bolus once; Sepsis tw4 Protocol 08:48 Drug: Lopressor (metoprolol TARTRATE)) 25 mg Route: PO; kg 11:22 Follow up: Response: No adverse reaction; Blood pressure is unchanged kg 08:49 Drug: Lopressor (metoprolol) 2.5 mg Route: IVP; Site: right forearm; kg 09:30 Follow up: BP 183 / 105; Pulse 73 bpm; Response: No adverse reaction; Blood pressure is kg unchanged 09:23 Drug: Lopressor (metoprolol) 2.5 mg Route: IVP; Site: right forearm; kg 09:30 Follow up: Response: No adverse reaction; Blood pressure is unchanged kg 19:46 Drug: EPINEPHrine 0.1mg/mL 1:10,000 1 mg {Note: adminsitered via dialysis catheter .} jb4 Route: IVP; Site: Other; 19:48 Drug: Sodium Bicarbonate 1 amp Route: IVP; Site: right forearm; jb4 19:48 Drug: Calcium Chloride 1 grams Route: IVP; Site: right forearm; jb4 19:49 Drug: EPINEPHrine 0.1mg/mL 1:10,000 1 mg {Note: Adminstered via dialysis catheter.} jb4 Route: IVP; Site: Other; 19:52 Drug: EPINEPHrine 0.1mg/mL 1:10,000 1 mg {Note: Adminstered via dialysis catheter.} jb4 Route: IVP; Site: Other; 19:55 Drug: EPINEPHrine 0.1mg/mL 1:10,000 1 mg Route: IVP; Site: right forearm; jb4 19:58 Drug: EPINEPHrine 0.1mg/mL 1:10,000 1 mg Route: IVP; Site: right forearm; jb4 20:16 Drug: EPINEPHrine 0.1mg/mL 1:10,000 1 mg Route: IVP; Site: right forearm; jb4 20:19 Drug: Sodium Bicarbonate 1 amp Route: IVP; Site: right forearm; jb4 20:22 Drug: D50W 50 ml Route: IVP; Site: right forearm; jb4 Outcome: 08:10 Decision to Hospitalize by Provider. fausto 21:45 Patient left the ED. mw2 Signatures: Dispatcher [employer] Eduar Massey MD MD cha Salyer, Edna es Ballard, Brenda, RN RN Marcus Moser RN RN jb4 Pedro Donaldson MD MD tw4 Gavi Leyva mw2 Malinda Dang kg, Andrea ad5
--- NOTE | 2021-01-10 08:11 | RAD REPORT ---
EXAM DESCRIPTION: Leida Single View01/10/2021 7:59 am CLINICAL HISTORY: Shortness of breath COMPARISON: December 30 FINDINGS: Moderate bilateral pulmonary opacities with pleural effusions. The heart is enlarged. Central venous catheter is in place IMPRESSION: These findings probably represent CHF
[2021-01-10 08:48] LABS: Urine Blood 2+ (Negative); Urine Glucose Negative (Negative); Urine Protein 3+ (Negative); Urine pH 8.5 (5.0-7.0)
[2021-01-10] MEDS ORDERED: METOPROLOL TARTRATE 5 MG/5 ML INJ IV ONE (08:53)
[2021-01-10] MEDS ORDERED: METOPROLOL TAR 25 MG TAB ONE ×2 (08:53→19:01)
[2021-01-10 09:32] LABS: Urine Bacteria 20-50 /HPF (<20); Urine Trichomonas PRESENT (NONE SEEN)
[2021-01-10 09:33] LABS: Urine Mucus 1+ /HPF (NONE SEEN)
[2021-01-10] MEDS ORDERED: ALPRAZOLAM 0.25 MG TABLET PO PRN (10:36)
[2021-01-10] MEDS ORDERED: ACETAMINOPHEN 500 MG TAB PO PRN (10:36)
[2021-01-10] MEDS ORDERED: FUROSEMIDE 40 MG/4 ML VIAL IV ONE ×2 (10:39→15:33)
[2021-01-10 11:34] VITALS: BMI 19.5
[2021-01-10] MEDS ORDERED: FUROSEMIDE 100 MG/10 ML VIAL IV ONE (12:37)
[2021-01-10] MEDS ORDERED: ACETAMINOPHEN 500 MG TAB ONE (14:47)
[2021-01-10] MEDS ORDERED: PIPER/TAZO/NS 2.25gm 2.25 GM/50 ML BAG IVPB ONE (15:33)
[2021-01-10] MEDS ORDERED: METHYLPREDNISOLONE 125 MG INJ IV ONE (15:33)
[2021-01-10] MEDS ORDERED: NITROGLYCERIN 1 GM PKT TD ONE ×2 (15:35→19:01)
[2021-01-10] MEDS ORDERED: MORPHINE 4 MG/ML SYR ONE ×2 (15:59→19:56)
[2021-01-10] MEDS: MORPHINE 4 MG/ML SYR IV PRN ×2 (16:05→19:30)
[2021-01-10] MEDS: IPRATROPIUM BROM 0.5MG/2.5ML NEB SCH ×2 (16:18→20:00)
[2021-01-10] MEDS: ALBUTEROL 2.5 MG/3 ML NEB SOL NEB SCH ×2 (16:18→20:00)
[2021-01-10] MEDS ORDERED: IPRATROPIUM BROM 0.5MG/2.5ML ONE ×2 (16:32→19:43)
[2021-01-10] MEDS ORDERED: ALBUTEROL 2.5 MG/3 ML NEB SOL ONE ×2 (16:32→19:43)
[2021-01-10] MEDS ORDERED: METHYLPREDNISOLONE 125 MG INJ IV SCH (18:00)
[2021-01-10] MEDS ORDERED: METOPROLOL TAR 25 MG TAB PO SCH (18:00)
[2021-01-10 18:33] LABS: Troponin I 0.02 ng/mL (0.0-0.045)
[2021-01-10] MEDS ORDERED: ETOMIDATE 20 MG/10 ML VIAL IV STA (19:40)
[2021-01-10] MEDS ORDERED: SUCCINYLCHOLINE 20 MG/ML (10 ML) IV SCH (19:40)
[2021-01-10] MEDS ORDERED: LABETALOL 20 MG/4ML SYRINGE IV ONE (19:56)
[2021-01-10] MEDS ORDERED: RSI MEDICATION KIT IV ONE (20:03)
--- NOTE | 2021-01-10 20:19 | RAD REPORT ---
EXAM DESCRIPTION: RAD - Chest Single View - 01/10/2021 8:01 pm CLINICAL HISTORY: post intubationa large amount of free intraperitoneal air is present. COMPARISON: Portable January 10, CT study June 2019 TECHNIQUE: AP portable chest image was obtained 01/10/2021 8:01 pm . FINDINGS: A very large amount of free intraperitoneal air is present. Air distended viscus near the GE junction is hiatal hernia seen on prior CT study. Lung volumes are low. Moderate-sized pleural effusion is present at the left lung base and along the left lateral chest. Dialysis catheter is in place. Resuscitation paddles are present in the right donna st and lateral lower left chest. Endotracheal tube is in place. Tip is at the level of the aortic arch no positioned approximately 4 c m lateral. In this setting, esophageal rather than tracheal intubation should be considered. Hazy int erstitial and alveolar opacities are present. No pneumothorax is present. Known pneumomediastinum marisela reciated. Heart size is normal. Chest film findings have been discussed with the referring physician. IMPRESSION: Placement of an endotracheal tube with the tip at the level of the mid aortic arch. Loving marlon, lateral positioning and the presence of a large amount of free intraperitoneal air raises the po ssibility of esophageal rather than tracheal intubation. A large amount of free intraperitoneal air is present indicating viscus perforation or tear. Based on available history the perforation could have predated the intubation and resuscitation efforts.
--- NOTE | 2021-01-10 20:23 | P.CNS ---
Allergies aloe vera Allergy (Verified 01/10/21 18:35) Unknown Sulfa (Sulfonamide Antibiotics) Allergy (Verified 06/11/16 04:41) Unknown alovera Allergy (Uncoded 01/25/15 23:30) Unknown Home Medications: Amlodipine Besylate 10 mg PO DAILY 01/10/21 Carvedilol [Coreg] 6.25 mg PO BID* 01/10/21 Dapsone [Dapsone*] 100 mg PO DAILY 01/10/21 Dolutegravir Sodium [Tivicay] 50 mg PO DAILY 01/10/21 Ergocalciferol (Vitamin D2) [Vitamin D 50,000 Unit Cap] 50,000 iu PO 01/10/21 Furosemide 40 mg PO BID 01/10/21 Pantoprazole [Protonix Tab*] 40 mg PO DAILY 01/10/21 Sevelamer Carbonate [Renvela*] 800 mg PO TID* 01/10/21 lamiVUDine [Epivir*] 150 mg PO 01/10/21 - Past Medical/Surgical History Diabetic: No -: Bilateral tubal ligation - Family History Father Medical History: Hypertension, Cancer Mother Medical History: Cancer Notes: leukemia - Social History Smoking Status: Unknown if ever smoked Alcohol use: No CD- Drugs: No Caffeine use: Yes Physical Examination Temp Pulse Resp BP Pulse Ox 98.4 F 97 H 95 H 204/116 H 97 01/10/21 12:00 01/10/21 18:00 01/10/21 16:35 01/10/21 18:00 01/10/21 16:05 Laboratory Data (last 24 hrs) 01/10/21 07:10: PT 10.3, INR 0.90, APTT 29.3 01/10/21 07:10: WBC 7.00, Hgb 7.5 L, Hct 21.8 L D, Plt Count 263 D 01/10/21 07:10: Sodium 136, Potassium 4.1, BUN 44 H D, Creatinine 5.48 H* D, Glucose 91, Total Bilirubin 1.6 H, AST 16, ALT 16, Alkaline Phosphatase 91, Amylase 120 H, Lipase 297
[2021-01-10] MEDS ORDERED: ATROPINE SULF 1 MG/10 ML SYR IV ONE (20:24)
[2021-01-10] MEDS ORDERED: ETOMIDATE 20 MG/10 ML VIAL IV ONE (20:24)
[2021-01-10] MEDS ORDERED: SUCCINYLCHOLINE 20 MG/ML (10 ML) IV ONE (20:24)
[2021-01-10] MEDS ORDERED: EPINEPHrine 1 MG/10 ML SYR IV ONE (20:24)
[2021-01-10] MEDS ORDERED: Caclcium Chloride 10% INJ SYR IV ONE (20:24)
[2021-01-10] MEDS ORDERED: D50W 25 GM/50 ML SYRINGE IV ONE (20:24)
[2021-01-10 22:18] VITALS: O2SAT 92
--- NOTE | 2021-01-11 05:02 | P.CNS ---
Date of Consult: 01/10/21 Pt admitted for shortness of breath and hypervolemia found to be in chf exacerbation. I follow pt in the outpt at [facility], and requested to be consulted. HD orders were placed, and pt underwent dialysis. Last hour of dialysis pt complained of sudden worsening shortness of breath, and coded. Pt before i was able to evaluate pt. Apparently vital signs were stable prior to sudden event of coding.
[2021-01-11 06:17] VITALS: BP 110/96; TEMP 98.2
[2021-01-11] MEDS ORDERED: ENOXAPARIN 30 MG/0.3 ML SQ SCH (09:00)
[2021-01-11] MEDS ORDERED: ASPIRIN EC 81 MG TAB PO SCH (09:00)
--- NOTE | 2021-01-11 12:00 | EKG ---
Test Date: 2021-01-10 Test Time: 07:09:04 Shade Classifier: ELLEN MEASUREMENT RESULTS: Intervals: Rate: 82 ID: [id number] QRSD: 82 QT: 412 QTc: 481 May: P: 48 ID: [id number] QRS: 35 T: 67 INTERPRETIVE STATEMENTS: Normal sinus rhythm Anterior infarct, age undetermined Abnormal ECG Compared to ECG 12/30/2020 04:22:09 Myocardial infarct finding now present Left ventricular hypertrophy no longer present Electronically Signed On 01-11-21 11:54:20 CDT by Ariel Blankenship
--- NOTE | 2021-01-11 12:44 | ECHO ---
HEIGHT: 5 ft 3 in WEIGHT: 110 lb 0 oz DATE OF STUDY: 01/10/[address]: Manuel Culp MD 2-DIMENSIONAL: YES M.MODE: YES DOPPLER: YES COLOR FLOW: YES TDS: NO PORTABLE: NO DEFINITY: NO BUBBLE STUDY: NO DIAGNOSIS: CONGESTIVE HEART FAILURE CARDIAC HISTORY: CATHERIZATION: SURGERY: PROSTHETIC VALVE: PACEMAKER: MEASUREMENTS (cm) DIASTOLIC (NORMALS) SYSTOLIC (NORMALS) IVSd 1.0 (0.6-1.2) LA Diam 4.0 (1.9-4.0) LVEF 50% LVIDd 5.0 (3.5-5.7) LVIDs 3.8 (2.0-3.5) %FS 25% LVPWd 1.4 (0.6-1.2) Ao Diam 2.4 (2.0-3.7) 2 DIMENSIONAL ASSESSMENT: RIGHT ATRIUM: NORMAL LEFT ATRIUM: NORMAL RIGHT VENTRICLE: NORMAL LEFT VENTRICLE: LEFT VENTRICULAR HYPERTROPHY TRICUSPID VALVE: NORMAL MITRAL VALVE: NORMAL PULMONIC VALVE: NORMAL AORTIC VALVE: NORMAL PERICARDIAL EFFUSION: NONE AORTIC ROOT: NORMAL LEFT VENTRICULAR WALL MOTION: NORMAL DOPPLER/COLOR FLOW: MILD AORTIC, TRICUSPID AND MITRAL REGURGITATION. COMMENTS: MILD AORTIC, TRICUSPID AND MITRAL REGURGITATION. NORMAL RIGHT VENTRICULAR SYSTOLIC PRESSURE. NORMAL LEFT VENTRICULAR EJECTION FRACTION. LEFT VENTRICULAR HYPERTROPHY. DECREASED LEFT VENTRICULAR COMPLIANCE. TECHNOLOGIST: Moustapha GASPAR
--- NOTE | 2021-01-16 04:22 | P.HP ---
Certification for Inpatient Patient admitted to: Observation With expected LOS: <2 Midnights Practitioner: I am a practitioner with admitting privileges, knowledge of patient current condition, hospital course, and medical plan of care. Services: Services provided to patient in accordance with Admission requirements found in Title 42 Section 412.3 of the Code of Federal Regulations Patient History Date of Service: 01/10/21 Reason for admission: Shortness of breath History of Present Illness: Patient is a 50-year-old female who is a history of end-stage renal disease who comes into the hospital with difficulty breathing. Patient was found to have shortness of breath and chest x-ray revealed pulmonary edema. Patient was scheduled for hemodialysis. I was able to evaluate the patient under hemodialysis and patient is feeling better. She stated that she was doing better since the hemodialysis had RAD been started. She denies any chest pain. Her oxygen saturations are stable and improved. We should be able to wean patient's oxygen saturations down. Patient be admitted for further evaluation. Echocardiogram is pending at this time as well. Allergies aloe vera Allergy (Verified 01/10/21 18:35) Unknown Sulfa (Sulfonamide Antibiotics) Allergy (Verified 06/11/16 04:41) Unknown alovera Allergy (Uncoded 01/25/15 23:30) Unknown Home Medications: Amlodipine Besylate 10 mg PO DAILY 01/10/21 Carvedilol [Coreg] 6.25 mg PO BID* 01/10/21 Dapsone [Dapsone*] 100 mg PO DAILY 01/10/21 Dolutegravir Sodium [Tivicay] 50 mg PO DAILY 01/10/21 Ergocalciferol (Vitamin D2) [Vitamin D 50,000 Unit Cap] 50,000 iu PO 01/10/21 Furosemide 40 mg PO BID 01/10/21 Pantoprazole [Protonix Tab*] 40 mg PO DAILY 01/10/21 Sevelamer Carbonate [Renvela*] 800 mg PO TID* 01/10/21 lamiVUDine [Epivir*] 150 mg PO 01/10/21 - Past Medical/Surgical History Has patient received pneumonia vaccine in the past: Yes Diabetic: No -: Dialysis -: Hiatal Hernia -: HIV -: Aortic Dissection -: Bilateral tubal ligation -: Dialysis Catheter - Family History Father Medical History: Hypertension, Cancer Mother Medical History: Cancer Notes: leukemia - Social History Smoking Status: Current every day smoker Alcohol use: No CD- Drugs: No Caffeine use: No Place of Residence: Home Review of Systems 10-point ROS is otherwise unremarkable Physical Examination - Vital Signs Temperature: 98.2 F Blood Pressure: 110/96 Pulse: 137 Respirations: 12 Pulse Ox (%): 76 - Physical Exam General: Alert, In no apparent distress, Oriented x3, Severe distress HEENT: Atraumatic, PERRLA, Mucous membr. moist/pink, EOMI, Sclerae nonicteric Neck: Supple, 2+ carotid pulse no bruit, No LAD, Without JVD or thyroid abnormality Respiratory: Diminished, Crackles/rales Cardiovascular: Regular rate/rhythm, Normal S1 S2, Systolic murmur Gastrointestinal: Normal bowel sounds, Soft and benign, Non-distended, No tenderness Musculoskeletal: No clubbing, No swelling, No tenderness Integumentary: No rashes Neurological: Normal gait, Normal speech, Normal strength at 5/5 x4 extr, Normal tone, Sensation intact, Cranial nerves 3-12 intact, Normal affect Lymphatics: No axilla or inguinal lymphadenopathy - Studies Microbiology Data (last 24 hrs): 01/10/21 07:25 Blood - Blood Aerobic Blood Culture - Final No growth in 5 days. 01/10/21 07:25 Blood - Blood Anaerobic Blood Culture - Final No growth in 5 days. 01/10/21 07:14 Blood - Blood Aerobic Blood Culture - Final No growth in 5 days. 01/10/21 07:14 Blood - Blood Anaerobic Blood Culture - Final No growth in 5 days. Assessment & Plan - Problems (Diagnosis) (1) Acute respiratory failure Status: Acute (2) Fluid overload Status: Acute (3) ESRD (end stage renal disease) Status: Acute (4) History of aortic dissection Status: Acute - Plan 1. Echocardiogram 2. Aggressive diuresing at this time 3. Strict blood pressure control 4. Cardiology consultation and nephrology consultation for hemodialysis 5. Aggressive diuresis and we are proceeding with dialysis at this time 6. Strict I's and O's 7. Repeat CXR 8. Daily weights 9. Education regarding diet and treatment of congestive heart failure At this time we will dialyze the patient in the emergency room and once patient is dialyzed hopefully we can place patient on medical-surgical floor Discharge Plan: Home Plan to discharge in: 48 Hours - Advance Directives Does patient have a Living Will: No Does patient have a Durable POA for Healthcare: No - Code Status/Comfort Care Code Status Assessed: Yes Code Status: Full Code Critical Care: No Time Spent Managing PTS Care (In Minutes): 45
--- NOTE | 2021-01-16 04:25 | P.DS ---
Discharge Date: 01/10/21 Disposition: Discharge Condition: Reason for Admission: Shortness of breath - Problems (1) Acute respiratory failure Status: Acute (2) Fluid overload Status: Acute (3) ESRD (end stage renal disease) Status: Acute (4) History of aortic dissection Status: Acute Brief History of Present Illness: Patient is a 50-year-old female who is a history of end-stage renal disease who comes into the hospital with difficulty breathing. Patient was found to have shortness of breath and chest x-ray revealed pulmonary edema. Patient was scheduled for hemodialysis. I was able to evaluate the patient under hemodialysis and patient is feeling better. She stated that she was doing better since the hemodialysis had RAD been started. She denies any chest pain. Her oxygen saturations are stable and improved. We should be able to wean patient's oxygen saturations down. Patient be admitted for further evaluation. Echocardiogram is pending at this time as well. Hospital Course: During the end of hemodialysis patient apparently developed respiratory distress once again. I see in her during the 1st part of dialysis and she states she was already feeling better. 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 Patient was fighting for her breath and she was intubated by the emergency room physician. Patient developed cardiac arrest and during the code patient was not able to be resuscitated back. Patient at 8:25 p.m. Home Medications: Amlodipine Besylate 10 mg PO DAILY 01/10/21 Carvedilol [Coreg] 6.25 mg PO BID* 01/10/21 Dapsone [Dapsone*] 100 mg PO DAILY 01/10/21 Dolutegravir Sodium [Tivicay] 50 mg PO DAILY 01/10/21 Ergocalciferol (Vitamin D2) [Vitamin D 50,000 Unit Cap] 50,000 iu PO 01/10/21 Furosemide 40 mg PO BID 01/10/21 Pantoprazole [Protonix Tab*] 40 mg PO DAILY 01/10/21 Sevelamer Carbonate [Renvela*] 800 mg PO TID* 01/10/21 lamiVUDine [Epivir*] 150 mg PO 01/10/21 Physician Discharge Instructions: Patient at 8:25 p.m. Followup: NONE,NONE [Primary Care Provider] - Time spent managing pt's care (in minutes): 20
== END 2021-01-10 20:25 | disposition expired ==
LOC: ER 06:34 → ERHOLD 10:36
PROVIDERS: ADMIT Hospitalist; ATTEND Hospitalist
DX: I50.43 Acute on chronic combined systolic (congestive) and diastolic (congestive) heart failure (principal); N18.6 End stage renal disease; Z99.2 Dependence on renal dialysis; Z20.822 Contact with and (suspected) exposure to COVID-19; R94.31 Abnormal electrocardiogram [ECG] [EKG]; D63.1 Anemia in chronic kidney disease; R09.02 Hypoxemia
CPT/HCPCS: 36415; 71045; 80048; 80076; 81003; 81015; 81025; 82150; 82550; 82553; 82947; 83605; 83690; 83880; 84145; 84484; 85025; 85610; 85730; 86850; 86900; 86901; 87040; 87086; 87088; 93005; 93306; 94640; 94660; 99284; G0257; J0171; J0330; J1644; U0003